=== PATIENT | male | born 1975 | race Caucasian/White ===

== ENCOUNTER 2023-12-16 11:06 | Inpatient (IN) | payer OTHER ==
--- NOTE | 2023-12-16 12:02 | ED ---
Abdominal Pain HPI - General Chief Complaint: Abdominal Pain Stated Complaint: Abd Pain Time Seen by Provider: 12/16/23 11:55 Source: patient, RN notes reviewed Mode of arrival: ambulatory Limitations: no limitations - History of Present Illness Initial Comments: This is a 48 year old male who presents to the emergency department for abdominal pain. For the last 4-5 days he has had epigastric abdominal pain and nausea/vomiting. He currently has constipation, but states that prior to this his stools were green. He does also note drinking alcohol heavily due to anxiety and life stressors. He subsequently checked into [facility] yesterday for alcohol use. Denies any history of withdrawal seizures or DTs. MD Complaint: abdominal pain - Related Data Home Medications Medication Instructions Recorded Confirmed Atorvastatin Calcium 20 mg PO HS 12/16/23 12/16/23 Losartan [Cozaar] 50 mg PO DAILY 12/16/23 12/16/23 Omeprazole [PriLOSEC] 20 mg PO DAILY 12/16/23 12/16/23 Ondansetron Odt [Zofran Odt] 4 mg PO Q8HR PRN 12/16/23 12/16/23 Oxybutynin ER [Ditropan XL] 15 mg PO DAILY 12/16/23 12/16/23 Venlafaxine HCl [Effexor] 37.5 mg PO DAILY 12/16/23 12/16/23 amLODIPine [Norvasc] 2.5 mg PO DAILY 12/16/23 12/16/23 Allergies Allergy/AdvReac Type Severity Reaction Status Date / Time No Known Allergies Allergy Verified 12/16/23 16:03 Review of Systems ROS Statement: Those systems with pertinent positive or pertinent negative responses have been documented in the HPI. ROS Other: All systems not noted in ROS Statement are negative. Past Medical History Past Medical History: Hypertension History of Any Multi-Drug Resistant Organisms: None Reported Past Surgical History: Hernia Repair Additional Past Surgical History / Comment(s): diffuse cysts Past Psychological History: ADD/ADHD, Anxiety Smoking Status: Current every day smoker Past Alcohol Use History: Daily Past Drug Use History: Opiates General Exam Limitations: no limitations General appearance: alert, in no apparent distress Head exam: Present: atraumatic, normocephalic, normal inspection Respiratory exam: Present: normal lung sounds bilaterally. Absent: respiratory distress, wheezes, rales, rhonchi, stridor Cardiovascular Exam: Present: regular rate, normal rhythm, normal heart sounds. Absent: systolic murmur, diastolic murmur, rubs, gallop, clicks GI/Abdominal exam: Present: soft, tenderness (Epigastric and RUQ), normal bowel sounds. Absent: distended Neurological exam: Present: alert, oriented X3, CN II-XII intact Psychiatric exam: Present: normal affect, normal mood Skin exam: Present: warm, dry, intact, normal color. Absent: rash Course Vital Signs 12/16/23 12/16/23 12/16/23 11:16 14:00 15:15 Temperature 98.5 F 98.9 F 98.0 F Pulse Rate 133 H 106 H 105 H Respiratory 18 20 18 Rate Blood Pressure 126/87 123/88 122/86 O2 Sat by Pulse 97 96 97 Oximetry 12/16/23 12/16/23 12/16/23 16:05 18:29 21:35 Temperature 98.9 F 98.9 F Pulse Rate 111 H 116 H 103 H Respiratory 20 18 18 Rate Blood Pressure 119/84 138/94 121/92 O2 Sat by Pulse 95 97 98 Oximetry Medical Decision Making - Medical Decision Making This is a 48 year old male who presents to the emergency department for abdominal pain. Was pt. sent in by a medical professional or institution? @ -[facility] Did you speak to anyone other than the patient for history? @ -No Did you review nursing and triage notes? @ -Yes, and I agree, it is accurate with regards to the patient's symptoms. Were old charts reviewed? @ -No Differential Diagnosis? @ -Differential Abdominal Pain Men: Appendicitis, cholecystitis, diverticulosis, ischemic bowel, pancreatitis, hepatitis, UTI, gastroenteritis, AAA, incarcerated hernia, bowel obstruction, constipation, inflammatory bowel, hepatitis, peptic ulcer disease, splenic infarction, perforated viscus, testicular torsion, this is not meant to be an al l-inclusive list EKG interpreted by me (3pts min.)? @ -EKG interpreted by me demonstrating the following: Sinus tachycardia. Ventricular rate 110 bpm, OH interval 129 ms, QRS duration 99 ms, QTc 390 ms. X-rays interpreted by me (1pt min.)? @ -KUB x-ray obtained. My interpretation identifies no dilation of the large or small bowel loops. CT interpreted by me (1pt min.)? @ -CT scan of the abdomen and pelvis obtained. My interpretation identifies inflammatory changes around the pancreas. U/S interpreted by me (1pt. min.)? @ -Gallbladder ultrasound obtained. My interpretation identifies no evidence of cholelithiasis. What testing was considered but not performed? (CT, X-rays, U/S, labs)? Why? @ -None What meds were considered but not given? Why? @ -None Did you discuss the management of the patient with other professionals? @ -Yes, Dr. Posey, who accepts the patient for admission. Did you reconcile home meds? @ -Yes Was smoking cessation discussed for >3mins.? @ -I discussed smoking cessation for greater than 3 minutes. The risk of smoking were discussed with the patient including but not limited to risks of cancer, stroke, coronary artery disease and COPD. Also discussed with patient were multiple methods of quitting smoking. Lastly we discussed the financial cost of smoking. Was critical care preformed (if so, how long)? @ -No Were there social determinants of health that impacted care today? How? (Homelessness, low income, unemployed, alcoholism, drug addiction, transportation, low edu. Level, literacy, decrease access to med. care, correction, rehab)? @ -Alcoholism, potentially causing the pancreatitis Was there de-escalation of care discussed even if they declined? (Discuss DNR or withdrawal of care, Hospice)? @ -No What co-morbidities impacted this encounter? (DM, HTN, Smoking, COPD, CAD, Cancer, CVA, Hep., AIDS, mental health diagnosis, sleep apnea, morbid obesity)? @ -Smoking, alcoholism, HTN Was patient admitted / discharged? @ -Admitted. Lab work obtained revealing leukocytosis with a white blood cell count of 17.6. Lactic acid elevated at 3.0. Lipase 662 and amylase 165. LFTs mildly elevated. KUB x-ray obtained initially when the patient was in the waiting room. This demonstrated a moderate amount of stool without other acute process. CT scan of the abdomen and pelvis was obtained due to the patient's abnormal lab work as well as the severity of his pain. This demonstrated espinoza nges relating to acute interstitial pancreatitis with moderate inflammation. Edema tracks down the mid and right retroperitoneum. Patient also has a hydropic gallbladder with mild dilation of the bile duct. Gallbladder ultrasound was then obtained demonstrating a somewhat prominent gallbladder wi thout any wall thickening or evidence of cholelithiasis. Given the severity of the patient's pain with notable pancreatic inflammation on CT scan, patient admitted to medicine for acute pancreatitis. Repeat lactic acid was still elevated at 2.5 and the patient remained consistently tachycardic. Patient started on maintenance IV fluids and will be started on a clear liquid diet for the mean time. Undiagnosed new problem with uncertain prognosis? @ -None Drug Therapy requiring intensive monitoring for toxicity (Heparin, Nitro, Insulin, Cardizem)? @ -None Were any procedures done? @ -None Diagnosis/symptom? @ -Acute pancreatitis Acute, or Chronic, or Acute on Chronic? @ -Acute Uncomplicated (without systemic symptoms) or Complicated (systemic symptoms)? @ -Complicated Side effects of treatment? @ -None Exacerbation, Progression, or Severe Exacerbation] @ -Not applicable Poses a threat to life or bodily function? @ -Yes This case was discussed in detail with the attending ED physician, Dr. Cardenas. Presentation, findings, and treatment plan discussed in detail as well. - Lab Data Result diagrams: 12/16/23 12:22 12/16/23 12:22 Lab Results 12/16/23 12/16/23 12/16/23 Range/Units 12:22 12:22 12:22 WBC 17.6 H (3.8-10.6) k/uL RBC 5.49 (4.30-5.90) m/uL Hgb 16.9 (13.0-17.5) gm/dL Hct 48.7 (39.0-53.0) % MCV 88.7 (80.0-100.0) fL MCH 30.7 (25.0-35.0) pg MCHC 34.6 (31.0-37.0) g/dL RDW 12.5 (11.5-15.5) % Plt Count 311 (150-450) k/uL MPV 7.4 Neutrophils % 86 % Lymphocytes % 9 % Monocytes % 4 % Eosinophils % 1 % Basophils % 0 % Neutrophils # 15.0 H (1.3-7.7) k/uL Lymphocytes # 1.5 (1.0-4.8) k/uL Monocytes # 0.8 (0-1.0) k/uL Eosinophils # 0.1 (0-0.7) k/uL Basophils # 0.0 (0-0.2) k/uL Sodium 132 L (137-145) mmol/L Potassium 3.6 (3.5-5.1) mmol/L Chloride 96 L (98-107) mmol/L Carbon Dioxide 24 (22-30) mmol/L Anion Gap 12 mmol/L BUN 21 H (9-20) mg/dL Creatinine 0.70 (0.66-1.25) mg/dL Est GFR (CKD-EPI)AfAm >90 (>60 ml/min/1.73 sqM) Est GFR (CKD-EPI)NonAf >90 (>60 ml/min/1.73 sqM) Glucose 117 H (74-99) mg/dL Lactic Ac Sepsis Rflx Plasma Lactic Acid Porfirio 3.0 H* (0.7-2.0) mmol/L Calcium 9.5 (8.4-10.2) mg/dL Total Bilirubin 1.3 (0.2-1.3) mg/dL AST 71 H (17-59) U/L ALT 66 H (4-49) U/L Alkaline Phosphatase 112 (38-126) U/L C-Reactive Protein (<1.0) mg/dL Total Protein 6.9 (6.3-8.2) g/dL Albumin 4.3 (3.5-5.0) g/dL Amylase 165 H (30-110) U/L Lipase 662 H (23-300) U/L Procalcitonin (0.02-0.09) ng/mL Serum Alcohol mg/dL Influenza Type A (PCR) (Not Detectd) Influenza Type B (PCR) (Not Detectd) RSV (PCR) (Not Detectd) SARS-CoV-2 (PCR) (Not Detectd) 12/16/23 12/16/23 12/16/23 Range/Units 12:22 12:43 14:00 WBC (3.8-10.6) k/uL RBC (4.30-5.90) m/uL Hgb (13.0-17.5) gm/dL Hct (39.0-53.0) % MCV (80.0-100.0) fL MCH (25.0-35.0) pg MCHC (31.0-37.0) g/dL RDW (11.5-15.5) % Plt Count (150-450) k/uL MPV Neutrophils % % Lymphocytes % % Monocytes % % Eosinophils % % Basophils % % Neutrophils # (1.3-7.7) k/uL Lymphocytes # (1.0-4.8) k/uL Monocytes # (0-1.0) k/uL Eosinophils # (0-0.7) k/uL Basophils # (0-0.2) k/uL Sodium (137-145) mmol/L Potassium (3.5-5.1) mmol/L Chloride (98-107) mmol/L Carbon Dioxide (22-30) mmol/L Anion Gap mmol/L BUN (9-20) mg/dL Creatinine (0.66-1.25) mg/dL Est GFR (CKD-EPI)AfAm (>60 ml/min/1.73 sqM) Est GFR (CKD-EPI)NonAf (>60 ml/min/1.73 sqM) Glucose (74-99) mg/dL Lactic Ac Sepsis Rflx Y Plasma Lactic Acid Porfirio (0.7-2.0) mmol/L Calcium (8.4-10.2) mg/dL Total Bilirubin (0.2-1.3) mg/dL AST (17-59) U/L ALT (4-49) U/L Alkaline Phosphatase (38-126) U/L C-Reactive Protein (<1.0) mg/dL Total Protein (6.3-8.2) g/dL Albumin (3.5-5.0) g/dL Amylase (30-110) U/L Lipase (23-300) U/L Procalcitonin (0.02-0.09) ng/mL Serum Alcohol <10 mg/dL Influenza Type A (PCR) Not Detected (Not Detectd) Influenza Type B (PCR) Not Detected (Not Detectd) RSV (PCR) Not Detected (Not Detectd) SARS-CoV-2 (PCR) Not Detected (Not Detectd) 12/16/23 12/16/23 12/16/23 Range/Units 14:00 14:00 15:12 WBC (3.8-10.6) k/uL RBC (4.30-5.90) m/uL Hgb (13.0-17.5) gm/dL Hct (39.0-53.0) % MCV (80.0-100.0) fL MCH (25.0-35.0) pg MCHC (31.0-37.0) g/dL RDW (11.5-15.5) % Plt Count (150-450) k/uL MPV Neutrophils % % Lymphocytes % % Monocytes % % Eosinophils % % Basophils % % Neutrophils # (1.3-7.7) k/uL Lymphocytes # (1.0-4.8) k/uL Monocytes # (0-1.0) k/uL Eosinophils # (0-0.7) k/uL Basophils # (0-0.2) k/uL Sodium (137-145) mmol/L Potassium (3.5-5.1) mmol/L Chloride (98-107) mmol/L Carbon Dioxide (22-30) mmol/L Anion Gap mmol/L BUN (9-20) mg/dL Creatinine (0.66-1.25) mg/dL Est GFR (CKD-EPI)AfAm (>60 ml/min/1.73 sqM) Est GFR (CKD-EPI)NonAf (>60 ml/min/1.73 sqM) Glucose (74-99) mg/dL Lactic Ac Sepsis Rflx Plasma Lactic Acid Porfirio 2.5 H* (0.7-2.0) mmol/L Calcium (8.4-10.2) mg/dL Total Bilirubin (0.2-1.3) mg/dL AST (17-59) U/L ALT (4-49) U/L Alkaline Phosphatase (38-126) U/L C-Reactive Protein 1.7 H (<1.0) mg/dL Total Protein (6.3-8.2) g/dL Albumin (3.5-5.0) g/dL Amylase (30-110) U/L Lipase (23-300) U/L Procalcitonin 0.07 (0.02-0.09) ng/mL Serum Alcohol mg/dL Influenza Type A (PCR) (Not Detectd) Influenza Type B (PCR) (Not Detectd) RSV (PCR) (Not Detectd) SARS-CoV-2 (PCR) (Not Detectd) 12/16/23 Range/Units 15:50 WBC (3.8-10.6) k/uL RBC (4.30-5.90) m/uL Hgb (13.0-17.5) gm/dL Hct (39.0-53.0) % MCV (80.0-100.0) fL MCH (25.0-35.0) pg MCHC (31.0-37.0) g/dL RDW (11.5-15.5) % Plt Count (150-450) k/uL MPV Neutrophils % % Lymphocytes % % Monocytes % % Eosinophils % % Basophils % % Neutrophils # (1.3-7.7) k/uL Lymphocytes # (1.0-4.8) k/uL Monocytes # (0-1.0) k/uL Eosinophils # (0-0.7) k/uL Basophils # (0-0.2) k/uL Sodium (137-145) mmol/L Potassium (3.5-5.1) mmol/L Chloride (98-107) mmol/L Carbon Dioxide (22-30) mmol/L Anion Gap mmol/L BUN (9-20) mg/dL Creatinine (0.66-1.25) mg/dL Est GFR (CKD-EPI)AfAm (>60 ml/min/1.73 sqM) Est GFR (CKD-EPI)NonAf (>60 ml/min/1.73 sqM) Glucose (74-99) mg/dL Lactic Ac Sepsis Rflx Y Plasma Lactic Acid Porfirio (0.7-2.0) mmol/L Calcium (8.4-10.2) mg/dL Total Bilirubin (0.2-1.3) mg/dL AST (17-59) U/L ALT (4-49) U/L Alkaline Phosphatase (38-126) U/L C-Reactive Protein (<1.0) mg/dL Total Protein (6.3-8.2) g/dL Albumin (3.5-5.0) g/dL Amylase (30-110) U/L Lipase (23-300) U/L Procalcitonin (0.02-0.09) ng/mL Serum Alcohol mg/dL Influenza Type A (PCR) (Not Detectd) Influenza Type B (PCR) (Not Detectd) RSV (PCR) (Not Detectd) SARS-CoV-2 (PCR) (Not Detectd) - Radiology Data Radiology results: report reviewed, image reviewed Disposition Clinical Impression: Acute pancreatitis, Nicotine dependence Disposition: ADMITTED IP TO THIS [facility] Time of Disposition: 15:43
[2023-12-16 12:32] LABS: Basophils % (A) 0 %; Eosinophils # (A) 0.1 k/uL (0-0.7); Eosinophils % (A) 1 %; HCT 48.7 % (39.0-53.0); HGB 16.9 gm/dL (13.0-17.5); Lymphocytes # (A) 1.5 k/uL (1.0-4.8); Lymphocytes % (A) 9 %; MCH 30.7 pg (25.0-35.0); MCHC 34.6 g/dL (31.0-37.0); MCV 88.7 fL (80.0-100.0); Mean Platelet Volume 7.4; Monocytes # (A) 0.8 k/uL (0-1.0); Monocytes % (A) 4 %; Neutrophils % (A) 86 %; Platelet Count 311 k/uL (150-450); RBC 5.49 m/uL (4.30-5.90); RDW 12.5 % (11.5-15.5); WBC 17.6 k/uL (3.8-10.6)
[2023-12-16 12:40] LABS: ALT 66 U/L (4-49); AST 71 U/L (17-59); African American GFR (CKD) >90 (>60 ml/min/1.73 sqM); Albumin 4.3 g/dL (3.5-5.0); Alkaline Phosphatase 112 U/L (38-126); Amylase 165 U/L (30-110); Anion Gap 12 mmol/L; Blood Urea Nitrogen 21 mg/dL (9-20); Calcium 9.5 mg/dL (8.4-10.2); Carbon Dioxide 24 mmol/L (22-30); Chloride 96 mmol/L (98-107); Glucose 117 mg/dL (74-99); Lipase 662 U/L (23-300); Non-African American GFR(CKD) >90 (>60 ml/min/1.73 sqM); Potassium 3.6 mmol/L (3.5-5.1); Sodium 132 mmol/L (137-145); Total Bilirubin 1.3 mg/dL (0.2-1.3); Total Protein 6.9 g/dL (6.3-8.2)
--- NOTE | 2023-12-16 12:43 | XR ---
EXAMINATION TYPE: XR KUB DATE OF EXAM: 12/16/2023 12:39 PM CLINICAL INDICATION:Male, 48 years old with history of Abdominal pain, constipation; [facility] COMPARISON: None. TECHNIQUE: One radiographic view of the abdomen was obtained. FINDINGS: The bowel gas pattern is nonspecific without dilated loops of small or large bowel. There i s no evidence for organomegaly or pneumoperitoneum. The osseous structures are intact. No abnormal calcifications are present. Fecal material and gas are demonstrated throughout the colon and rectum. Bilateral degeneration changes of the hips. IMPRESSION: Moderate amount of stool otherwise, nonspecific bowel gas pattern without radiographic evidence for a cute process.
[2023-12-16] MEDS: ONDANSETRON 4 MG/2 ML VIAL IVP STA (13:33)
[2023-12-16] MEDS: SODIUM CHLORIDE 0.9% 1,000 ML IV STA ×2 (13:33→16:00)
[2023-12-16] MEDS: KETOROLAC 15 MG/ML 1 ML VIAL IVP STA (13:33)
--- NOTE | 2023-12-16 13:51 | CT ---
EXAMINATION TYPE: CT abdomen pelvis w con DATE OF EXAM: 12/16/2023 COMPARISON: Radiograph same day HISTORY: 48-year-old male Abdominal pain, acute, nonlocalized TECHNIQUE: Contiguous axial scanning of the abdomen and pelvis following administration of 100 ml Iso demarcus r300 IV contrast. Delayed images through the kidneys and coronal/sagittal reconstructions perfor med. CT DLP: 1486.2 mGycm Automated exposure control for dose reduction was used. FINDINGS: Heart is normal size without pericardial effusion. Strandy atelectasis in the right lower l franco. No pleural effusion. Liver is enlarged at 20.4 cm with diminished attenuation compatible with fatty infiltration. Portal v enous system is patent. Hydropic gallbladder measuring 5.3 cm wide. In addition, the bile duct is mildly dilated at 8 mm. Adrenal glands, right kidney, and spleen within normal limits. Tiny 1 cm cortical cyst left kidney. There is edematous enlargement of the head of the pancreas with peripancreatic fat stranding diffusel y and mild tracking edema and inflammation in the mid and right side of the retroperitoneum. Trace fl uid tracking along the right paracolic gutter as well. No abnormal peripancreatic fluid collection is seen. Mild circumferential thickening of the second portion of the duodenum likely relates to reactive infl ammation. No dilated small bowel or free air is seen. Normal appendix. Scattered minimal stool. No pericolic inflammatory change. Previous right lower quadrant and right inguinal mesh repair. Bladder partially distended. No abnormal fluid collection in the pelvis or pelvic lymphadenopathy. Bones: Moderate to advanced degenerative disc disease L4-L5 and L5-S1. IMPRESSION: 1. CHANGES RELATING TO ACUTE INTERSTITIAL PANCREATITIS WITH MODERATE INFLAMMATION. EDEMA TRACKS DOWN THE MID AND RIGHT RETROPERITONEUM. NO PERIPANCREATIC FLUID COLLECTION IDENTIFIED. 2. HYDROPIC GALLBLADDER. IN ADDITION, THERE IS MILD DILATATION OF THE BILE DUCT UP TO 8 MM. CORRELATE WITH ALKALINE PHOSPHATASE AND BILIRUBIN LEVELS TO EXCLUDE THE POSSIBILITY OF EARLY BILIARY OBSTRUCTI ON A POTENTIAL ETIOLOGY FOR THE PANCREATITIS. 3. HEPATOMEGALY AT 20.4 CM WITH MODERATE TO SEVERE HEPATIC STEATOSIS. APPROPRIATE CLINICAL MANAGEMENT IS ADVISED.
--- NOTE | 2023-12-16 15:01 | US ---
EXAMINATION TYPE: US gallbladder DATE OF EXAM: 12/16/2023 COMPARISON: CLINICAL INDICATION: Male, 48 years old with history of RUQ pain, abnormal CT; Patient states he is u nable to eat. Abnormal CT from today. TECHNIQUE: Multiple sonographic images of the right upper quadrant are obtained. FINDINGS: EXAM MEASUREMENTS: Liver Length: 18.9 cm Gallbladder Wall: 0.1 cm CBD: 0.6 cm Right Kidney: 11.1 x 6.5 x 7.0 cm Pancreas: Body and tail not well seen Liver: Increased attenuation, decreased visualization of vessels suggestive of fatty infiltrate. En larged in size. Gallbladder: Enlarged in size = 10.5 cm. No wall thickening or stones seen Evidence for sonographic Ellis's sign: neg CBD: wnl Right Kidney: No hydronephrosis or masses seen IMPRESSION: 1. Hepatomegaly. 2. Somewhat prominent gallbladder. No additional changes to suggest acute cholecystitis evident.
[2023-12-16] MEDS ORDERED: KETOROLAC 15 MG/ML 1 ML VIAL IVP PRN (15:50)
[2023-12-16] MEDS ORDERED: NALOXONE 0.4 MG/ML 1 ML VIAL IV PRN (15:50)
[2023-12-16] MEDS ORDERED: ACETAMINOPHEN TAB 325 MG TAB PO PRN (15:50)
[2023-12-16] MEDS: SODIUM CHLORIDE 0.9% 1,000 ML IV SCH (16:00)
[2023-12-16] MEDS: HYDROmorphone 1 MG/ML 1 ML SYRINGE IVP PRN (18:33)
[2023-12-16] MEDS ORDERED: ONDANSETRON ODT 4 MG TAB PO PRN (18:36)
[2023-12-16] MEDS: ATORVASTATIN 20 MG TAB PO SCH (20:25)
[2023-12-16] MEDS: ONDANSETRON 4 MG/2 ML VIAL IVP PRN (20:26)
[2023-12-17 08:41] LABS: ALT 53 U/L (10-49); AST 58 U/L (14-35); Albumin 3.5 g/dL (3.8-4.9); Albumin/Globulin Ratio 1.59 Ratio (1.60-3.17); Alkaline Phosphatase 121 U/L (41-126); BUN/Creat Ratio 19.86 Ratio (12.00-20.00); Blood Urea Nitrogen 13.9 mg/dL (9.0-27.0); Calcium 8.4 mg/dL (8.7-10.3); Carbon Dioxide 24.4 mmol/L (21.6-31.8); Chloride 99 mmol/L (96-109); Globulin 2.2 g/dL (1.6-3.3); Glucose 95 mg/dL (70-110); Lipase 156 U/L (14-60); Potassium 3.4 mmol/L (3.5-5.5); Sodium 135 mmol/L (135-145); Total Bilirubin 0.9 mg/dL (0.3-1.2); Total Protein 5.7 g/dL (6.2-8.2)
[2023-12-17] MEDS ORDERED: NON FORMULARY DRUG (Omeprazole 20 MG Capsule.Dr) PO SCH (09:00)
[2023-12-17] MEDS: PANTOPRAZOLE 40 MG/10 ML VIAL IV SCH (09:03)
[2023-12-17] MEDS: LOSARTAN 50 MG TAB PO SCH (09:03)
[2023-12-17] MEDS: OXYBUTYNIN 15 MG TAB.ER.24 PO SCH (09:03)
[2023-12-17] MEDS: amLODIPine 2.5 MG TAB PO SCH (09:03)
[2023-12-17] MEDS: VENLAFAXINE HCL 37.5 MG TAB PO SCH (09:03)
[2023-12-17] MEDS: POTASSIUM CHLORIDE ER 20 MEQ TAB.ER PO STA (10:51)
[2023-12-17 11:39] VITALS: BMI 31.1
--- NOTE | 2023-12-17 22:18 | P.HPIM ---
History of Present Illness H&P Date: 12/17/23 Chief Complaint: Abdominal pain Patient is a 48-year-old male with a known history of hypertension, ADD/ADHD, anxiety, daily alcohol use and currently everyday smoker presents to ER with complaints of abdominal pain mainly in the epigastric and left upper quadrant. Patient has been having symptoms for the past 4 to 5 days associate with nausea and vomiting. Patient also has constipation recently. Patient was states that she has been anxious for t he past 2 months and has been drinking heavily due to that. He was started on Effexor by his primary care physician which patient states is not helping her. Otherwise denies any complaints of diarrhea. No chest pain or shortness of breath. No cough or sputum production. No fever no chills. Denies any recent illnesses. KUB x-ray showed moderate amount of stool otherwise nonspecific bowel gas pattern without radiographic evidence for acute process. CT of the abdomen pelvis showed changes relating to acute interstitial pancreatitis with moderate inflammation. Edema tracks down the mid and right retroperitoneum. No peripancreatic fluid collection identified. Hydropic gallbladder. In addition there is mild dilatation of the bile duct up to 8 mm. Correlate with alkaline phosphatase and bilirubin levels to exclude the possibility of early coronary obstruction as a potential etiology for the pancreatitis. Hepatomegaly at 20.4 cm with moderate to severe hepatic steatosis. Laboratory data showed sodium 132 potassium 3.6 chloride 96 BUN 21 creatinine 0.7 lactic acid 3.0 on admission AST 71 ALT 66 and alk phos 112, bilirubin level 1.3 Amylase 165 and lipase 662 and serum alcohol level is less than 10. Review of Systems Constitutional: Patient denies any fever or chills . No generalized weakness or weight loss. Abdomen: Patient did have nausea vomiting and epiastric and left upper quadrant abdominal pain. No diarrhea Cardiovascular: Patient denies any chest pain or short of breath no palpitations. Respiratory: patient denied any cough is from production. No shortness of breath Neurologic: Patient denied any numbness or tingling headache. Musculoskeletal: Patient denies any complaints of joint swelling or deformity. Skin: Negative Psychiatric: Anxiety Endocrine: No heat or cold intolerance. No recent weight gain. Genitourinary: No dysuria or hematuria. All other 14 point ROS negative except the above Past Medical History Past Medical History: Hypertension Additional Past Medical History / Comment(s): TIA 10 years ago, History of Any Multi-Drug Resistant Organisms: None Reported Past Surgical History: Hernia Repair Additional Past Surgical History / Comment(s): diffuse cysts Past Anesthesia/Blood Transfusion Reactions: No Reported Reaction Past Psychological History: ADD/ADHD, Anxiety Smoking Status: Current every day smoker Past Alcohol Use History: Daily Past Drug Use History: Opiates Medications and Allergies Home Medications Medication Instructions Recorded Confirmed Type Atorvastatin Calcium 20 mg PO HS 12/16/23 12/16/23 History Losartan [Cozaar] 50 mg PO DAILY 12/16/23 12/16/23 History Omeprazole [PriLOSEC] 20 mg PO DAILY 12/16/23 12/16/23 History Ondansetron Odt [Zofran Odt] 4 mg PO Q8HR PRN 12/16/23 12/16/23 History Oxybutynin ER [Ditropan XL] 15 mg PO DAILY 12/16/23 12/16/23 History Venlafaxine HCl [Effexor] 37.5 mg PO DAILY 12/16/23 12/16/23 History amLODIPine [Norvasc] 2.5 mg PO DAILY 12/16/23 12/16/23 History Allergies Allergy/AdvReac Type Severity Reaction Status Date / Time No Known Allergies Allergy Verified 12/16/23 16:03 Physical Exam Vitals: Vital Signs Temp Pulse Pulse Resp BP BP Pulse Ox 12/17/23 07:00 98.4 F 88 16 135/80 97 12/17/23 02:13 98.4 F 88 18 116/65 97 12/16/23 22:23 102 H 12/16/23 22:03 99.4 F 102 H 18 131/87 99 12/16/23 21:35 103 H 18 121/92 98 12/16/23 18:29 98.9 F 116 H 18 138/94 97 12/16/23 16:05 98.9 F 111 H 20 119/84 95 12/16/23 15:15 98.0 F 105 H 18 122/86 97 12/16/23 14:00 98.9 F 106 H 20 123/88 96 12/16/23 11:16 98.5 F 133 H 18 126/87 97 Intake and Output 12/16/23 12/17/23 12/17/23 22:59 06:59 14:59 Other: Voiding Method Toilet # Voids 2 Weight 104.326 kg PHYSICAL EXAMINATION: Patient is lying in the bed comfortably, no acute distress, awake alert and oriented.. HEENT: Normocephalic. Neck is supple. Pupils reactive. Nostrils clear. Oral cavity is moist. Neck reveals no JVD, carotid bruits, or thyromegaly. CHEST EXAMINATION: Trachea is central. Symmetrical expansion. Lung nesbitt clear to auscultation and percussion. CARDIAC: Normal S1, S2 with no gallops. No murmurs ABDOMEN: Soft. Bowel sounds normal. Mild epigastric tenderness. No guarding or rigidity. No organomegaly. No abdominal bruits. Extremities: reveal no edema. No clubbing or cyanosis Neurologically awake, alert, oriented x3 with well-coordinated movements. No focal deficits noted Skin: No rash or skin lesions. Psychiatric: Coperative. Nonsuicidal, anxious. Musculoskeletal: No joint swelling or deformity. Normal range of motion. Results CBC & Chem 7: 12/16/23 12:22 12/17/23 05:47 Labs: Abnormal Lab Results - Last 24 Hours (Table) 12/16/23 12/16/23 12/16/23 Range/Units 12:22 12:22 12:22 WBC 17.6 H (3.8-10.6) k/uL Neutrophils # 15.0 H (1.3-7.7) k/uL Sodium 132 L (137-145) mmol/L Potassium (3.5-5.5) mmol/L Chloride 96 L (98-107) mmol/L BUN 21 H (9-20) mg/dL Glucose 117 H (74-99) mg/dL Plasma Lactic Acid Porfirio 3.0 H* (0.7-2.0) mmol/L Calcium (8.7-10.3) mg/dL AST 71 H (17-59) U/L ALT 66 H (4-49) U/L C-Reactive Protein (<1.0) mg/dL Total Protein (6.2-8.2) g/dL Albumin (3.8-4.9) g/dL Albumin/Globulin Ratio (1.60-3.17) Ratio Amylase 165 H (30-110) U/L Lipase 662 H (23-300) U/L 12/16/23 12/16/23 12/16/23 Range/Units 14:00 15:12 18:30 WBC (3.8-10.6) k/uL Neutrophils # (1.3-7.7) k/uL Sodium (137-145) mmol/L Potassium (3.5-5.5) mmol/L Chloride (98-107) mmol/L BUN (9-20) mg/dL Glucose (74-99) mg/dL Plasma Lactic Acid Porfirio 2.5 H* 2.1 H* (0.7-2.0) mmol/L Calcium (8.7-10.3) mg/dL AST (17-59) U/L ALT (4-49) U/L C-Reactive Protein 1.7 H (<1.0) mg/dL Total Protein (6.2-8.2) g/dL Albumin (3.8-4.9) g/dL Albumin/Globulin Ratio (1.60-3.17) Ratio Amylase (30-110) U/L Lipase (23-300) U/L 12/17/23 Range/Units 05:47 WBC (3.8-10.6) k/uL Neutrophils # (1.3-7.7) k/uL Sodium (137-145) mmol/L Potassium 3.4 L (3.5-5.5) mmol/L Chloride (98-107) mmol/L BUN (9-20) mg/dL Glucose (74-99) mg/dL Plasma Lactic Acid Porfirio (0.7-2.0) mmol/L Calcium 8.4 L (8.7-10.3) mg/dL AST 58 H (17-59) U/L ALT 53 H (4-49) U/L C-Reactive Protein (<1.0) mg/dL Total Protein 5.7 L (6.2-8.2) g/dL Albumin 3.5 L (3.8-4.9) g/dL Albumin/Globulin Ratio 1.59 L (1.60-3.17) Ratio Amylase (30-110) U/L Lipase 156 H (23-300) U/L Thrombosis Risk Factor Assmnt - DVT/VTE Prophylaxis DVT/VTE Prophylaxis: Pharmacologic Prophylaxis ordered - Choose All That Apply Any of the Below Risk Factors Present?: Yes Each Factor Represents 1 point: Age 41-60 years, Minor surgery planned Other Risk Factors: No Other congenital or acquired thrombophilia - If yes, enter type in comment: No Thrombosis Risk Factor Assessment Total Risk Factor Score: 2 Thrombosis Risk Factor Assessment Level: Low Risk Assessment and Plan Assessment: Acute pancreatitis likely EtOH related Lactic acidosis on admission Mild transaminitis Leukocytosis with WBC 17.7 on admission ADD/ADHD Anxiety Currently everyday smoker and daily alcohol use DVT prophylax with heparin subcu GI prophylaxis with PPI Plan: Patient will be continued on IV hydration with normal saline and continue with pain management with Dilaudid. Nothing by mouth until pain gets better. Ultrasound gallbladder was ordered which showed hepatomegaly and no additional changes to suggest acute cholecystitis noted. Bilirubin level and alk phos is within normal limits. Currently denies any right upper quadrant abdominal pain. Continue to follow closely. Alcohol abstinence has been counseled extensively. Patient will be started on Cymbalta and Effexor has been discontinued. Time with Patient: Greater than 30
[2023-12-17] MEDS: DULoxetine HCL 20 MG CAPSULE.DR PO SCH (23:45)
[2023-12-17] MEDS: SENNOSIDES 8.6 MG TAB PO PRN (23:45)
[2023-12-17] MEDS: HEPARIN SODIUM,PORCINE 5,000 UNIT/ML 1 ML VIAL SQ SCH (23:55)
[2023-12-18 09:31] LABS: Basophils # (A) 0.03 X 10*3/uL (0.00-0.10); Basophils % (A) 0.3 %; Eosinophils % (A) 0.9 %; HCT 36.9 % (39.6-50.0); HGB 12.8 g/dL (13.0-17.0); Lymphocytes # (A) 1.73 X 10*3/uL (0.90-5.00); Lymphocytes % (A) 16.2 %; MCH 30.9 pg (27.0-32.0); MCHC 34.7 g/dL (32.0-37.0); MCV 89.1 FL (80.0-97.0); Mean Platelet Volume 9.6 FL (9.5-12.2); Monocytes # (A) 0.56 X 10*3/uL (0.20-1.00); Monocytes % (A) 5.3 %; NRBC Per 100 WBC 0 X 10*3/uL (0.00-0.01); Neutrophils # (A) 8.21 X 10*3/uL (1.80-7.70); Platelet Count 206 X 10*3/uL (140-440); RBC 4.14 X 10*6/uL (4.40-5.60); RDW 12.1 % (11.5-14.5); WBC 10.66 X 10*3/uL (4.50-10.00)
[2023-12-18 09:39] LABS: ALT 41 U/L (10-49); AST 33 U/L (14-35); Albumin 3.3 g/dL (3.8-4.9); Albumin/Globulin Ratio 1.65 Ratio (1.60-3.17); Alkaline Phosphatase 117 U/L (41-126); Calcium 8.3 mg/dL (8.7-10.3); Carbon Dioxide 26.1 mmol/L (21.6-31.8); Chloride 100 mmol/L (96-109); Glucose 99 mg/dL (70-110); Potassium 3.4 mmol/L (3.5-5.5); Sodium 137 mmol/L (135-145); Total Bilirubin 0.6 mg/dL (0.3-1.2); Total Protein 5.3 g/dL (6.2-8.2)
[2023-12-18] MEDS ORDERED: Potassium Replacement Protocol 1 EACH MISC MISCELLANE PRN (14:04)
[2023-12-18] MEDS: POTASSIUM CHLORIDE ER 20 MEQ TAB.ER PO SCH (14:52)
[2023-12-18] MEDS: HYDROcodone/APAP 5-325MG 1 EACH TAB PO PRN (14:55)
--- NOTE | 2023-12-18 15:34 | P.PN ---
Subjective Progress Note Date: 12/18/23 Patient is a 48-year-old male with a known history of hypertension, ADD/ADHD, anxiety, daily alcohol use and currently everyday smoker presents to ER with complaints of abdominal pain mainly in the epigastric and left upper quadrant. Patient has been having symptoms for the past 4 to 5 days associate with nausea and vomiting. Patient also has constipation recently. Patient was states that she has been anxious for t he past 2 months and has been drinking heavily due to that. He was started on Effexor by his primary care physician which patient states is not helping her. Otherwise denies any complaints of diarrhea. No chest pain or shortness of breath. No cough or sputum production. No fever no chills. Denies any recent illnesses. KUB x-ray showed moderate amount of stool otherwise nonspecific bowel gas pattern without radiographic evidence for acute process. CT of the abdomen pelvis showed changes relating to acute interstitial pancreatitis with moderate inflammation. Edema tracks down the mid and right retroperitoneum. No peripancreatic fluid collection identified. Hydropic gallbladder. In addition there is mild dilatation of the bile duct up to 8 mm. Correlate with alkaline phosphatase and bilirubin levels to exclude the possibility of early coronary obstruction as a potential etiology for the pancreatitis. Hepatomegaly at 20.4 cm with moderate to severe hepatic steatosis. Laboratory data showed sodium 132 potassium 3.6 chloride 96 BUN 21 creatinine 0.7 lactic acid 3.0 on admission AST 71 ALT 66 and alk phos 112, bilirubin level 1.3 Amylase 165 and lipase 662 and serum alcohol level is less than 10. 12/18/2023 Patient is seen and evaluated in follow-up today is continued on IV hydration with normal saline and liver functions are within normal limits and lactic acid has resolved. Potassium slightly low at 3.4 and will replace per protocol recommend follow-up labs. Per nursing staff patient continues to request IV pain medications although will transition and also discussed with the patient about avoiding IV narcotics and continuing with other pain control measures as patient will not be discharged back to [place] on IV Dilaudid. Patient plans on returning to [place] for continued alcohol rehab. Patient is currently afebrile reports attempted to tolerate some diet although feels abdominal pain with this as well. Will transition to low fiber and monitor for tolerance and encourage small frequent meals. Patient also instructed that if abdominal pain increases then to cut back on diet and continue with just ice chips and small sips of water. Patient has been also been instructed to increase activity as tolerated. Possible discharge planning to [place] in 24 hours. Review of systems: Constitutional: No reports of fatigue, fever, or chills Cardiovascular: No reports of chest pain or palpitations Respiratory: No reports of shortness of breath or cough GI: reports of continued nausea, no vomiting, or diarrhea, reports continued abdominal pain : No reports of dysuria or retention Neurovascular: No reports of weakness or numbness All medications have been reviewed PHYSICAL EXAMINATION: Patient is lying in the bed comfortably, no acute distress, awake alert and oriented.. Obese HEENT: Normocephalic. Neck is supple. Pupils reactive. Nostrils clear. Oral cavity is moist. Neck reveals no JVD, carotid bruits, or thyromegaly. CHEST EXAMINATION: Trachea is central. Symmetrical expansion. Lung nesbitt clear to auscultation and percussion. CARDIAC: Normal S1, S2 with no gallops. No murmurs ABDOMEN: Soft. Bowel sounds normal. Mild epigastric tenderness. No guarding or rigidity. No organomegaly. No abdominal bruits. Extremities: reveal no edema. No clubbing or cyanosis Neurologically awake, alert, oriented x3 with well-coordinated movements. No focal deficits noted Skin: No rash or skin lesions. Psychiatric: Cooperative. Non-suicidal, a little less anxious. Musculoskeletal: No joint swelling or deformity. Normal range of motion. Assessment: Acute pancreatitis likely EtOH related Lactic acidosis on admission, resolved Mild transaminitis secondary to alcohol intake, improved Leukocytosis with WBC 17.7 on admission, trending down ADD/ADHD history Anxiety history Currently everyday smoker and daily alcohol use Obesity with a BMI of 31.2 DVT prophylax with heparin subcu GI prophylaxis with PPI Full code Plan: Patient will be continued on IV hydration with normal saline and continue with p ain management with Dilaudid. Patient was started on clear liquid and tolerating although reports continued abdominal pain. Per nursing staff patient has been requesting IV Dilaudid. Will adjust medications and also add oral pain medications. Advance diet to low fiber and instructed the patient if having continued pain then will go back to n.p.o. with just ice chips. Patient verbalized understanding Ultrasound gallbladder was ordered which showed hepatomegaly and no additional changes to suggest acute cholecystitis noted. Bilirubin level and alk phos is within normal limits. Currently denies any right upper quadrant abdominal pain. Continue to follow closely. Alcohol abstinence has been counseled extensively. Patient reports plan on returning to [place] for continued alcohol rehab Patient will be continued on Cymbalta and Effexor has been discontinued. Follow-up with repeat labs in the a.m. Encouraged increase activity as tolerated Possible discharge to [place] in the next 24 hours The impression and plan of care has been dictated by Thuy Padgett, Nurse Practitioner as directed. Dr. Kalpesh MD I have performed a history and examination and MDM of this patient, discussed the same with the dictator, and agree with the dictator's assessment and plan as written ,documented as a scribe. Based on total visit time, I have performed more than 50% of the visit. Objective - Vital Signs Vital signs: Vital Signs Temp 98.1 F 12/18/23 07:00 Pulse 72 12/18/23 07:00 Resp 18 12/18/23 07:00 BP 130/88 12/18/23 07:00 Pulse Ox 96 12/18/23 07:00 FiO2 Intake & Output 12/17/23 12/18/23 12/18/23 18:59 06:59 18:59 Intake Total 1160 Balance 1160 Weight 104.326 kg Intake: Intake, IV Titration 800 Amount Sodium Chloride 0.9% 1, 800 000 ml @ 100 mls/hr IV . Q10H [facility] Rx#:[id number] Oral 360 Other: # Voids 3 - Labs CBC & Chem 7: 12/18/23 05:36 12/18/23 05:36 Labs: Abnormal Lab Results - Last 24 Hours (Table) 12/18/23 Range/Units 05:36 WBC 10.66 H (4.50-10.00) X 10*3/uL RBC 4.14 L (4.40-5.60) X 10*6/uL Hgb 12.8 L (13.0-17.0) g/dL Hct 36.9 L (39.6-50.0) % Neutrophils # 8.21 H (1.80-7.70) X 10*3/uL
[2023-12-18] MEDS: MELATONIN 3 MG TABLET PO SCH (23:54)
[2023-12-19 10:08] LABS: Basophils % (A) 0 %; Eosinophils # (A) 0.1 k/uL (0-0.7); Eosinophils % (A) 1 %; HCT 35.9 % (39.0-53.0); Lymphocytes # (A) 1.3 k/uL (1.0-4.8); Lymphocytes % (A) 15 %; MCH 32.6 pg (25.0-35.0); MCHC 34.7 g/dL (31.0-37.0); Mean Platelet Volume 7.1; Monocytes # (A) 0.2 k/uL (0-1.0); Monocytes % (A) 3 %; Neutrophils # (A) 6.6 k/uL (1.3-7.7); Neutrophils % (A) 80 %; Platelet Count 205 k/uL (150-450); RBC 3.83 m/uL (4.30-5.90); RDW 12.3 % (11.5-15.5); WBC 8.4 k/uL (3.8-10.6)
[2023-12-19 10:13] LABS: HGB 12.5 gm/dL (13.0-17.5); MCV 93.8 fL (80.0-100.0)
[2023-12-19 10:18] LABS: ALT 36 U/L (4-49); AST 36 U/L (17-59); African American GFR (CKD) >90 (>60 ml/min/1.73 sqM); Albumin 3.1 g/dL (3.5-5.0); Albumin/Globulin Ratio 1.3; Alkaline Phosphatase 108 U/L (38-126); Anion Gap 4 mmol/L; Blood Urea Nitrogen 7 mg/dL (9-20); Calcium 8.3 mg/dL (8.4-10.2); Carbon Dioxide 27 mmol/L (22-30); Chloride 106 mmol/L (98-107); Globulin 2.3 g/dL; Glucose 156 mg/dL (74-99); Lipase 1878 U/L (23-300); Magnesium 1.6 mg/dL (1.6-2.3); Non-African American GFR(CKD) >90 (>60 ml/min/1.73 sqM); Potassium 3.1 mmol/L (3.5-5.1); Sodium 137 mmol/L (137-145); Total Bilirubin 0.5 mg/dL (0.2-1.3); Total Protein 5.4 g/dL (6.3-8.2)
[2023-12-19] MEDS: POTASSIUM CHLORIDE ER 20 MEQ TAB.ER PO SCH (13:26)
[2023-12-19] MEDS: MAGNESIUM SULFATE-D5W PMX 1 GM in DEXTROSE/WATER 1 100ML.BAG IVPB SCH (13:54)
[2023-12-19] MEDS: HYDROmorphone 0.5 MG/0.5 ML SYRINGE IVP PRN (15:55)
[2023-12-20 07:35] LABS: Basophils % (A) 0 %; Eosinophils # (A) 0.2 k/uL (0-0.7); Eosinophils % (A) 2 %; HGB 12.4 gm/dL (13.0-17.5); Lymphocytes % (A) 21 %; MCH 31.4 pg (25.0-35.0); MCHC 33.4 g/dL (31.0-37.0); Mean Platelet Volume 7.1; Monocytes # (A) 0.4 k/uL (0-1.0); Monocytes % (A) 4 %; Neutrophils # (A) 6.9 k/uL (1.3-7.7); Neutrophils % (A) 71 %; Platelet Count 230 k/uL (150-450); RBC 3.94 m/uL (4.30-5.90); RDW 12.5 % (11.5-15.5); WBC 9.7 k/uL (3.8-10.6)
[2023-12-20 07:48] LABS: ALT 40 U/L (4-49); AST 39 U/L (17-59); African American GFR (CKD) >90 (>60 ml/min/1.73 sqM); Albumin 3.1 g/dL (3.5-5.0); Albumin/Globulin Ratio 1.3; Alkaline Phosphatase 116 U/L (38-126); Anion Gap 5 mmol/L; Blood Urea Nitrogen 4 mg/dL (9-20); Calcium 8.4 mg/dL (8.4-10.2); Carbon Dioxide 28 mmol/L (22-30); Chloride 104 mmol/L (98-107); Globulin 2.4 g/dL; Glucose 95 mg/dL (74-99); Lipase 1605 U/L (23-300); Non-African American GFR(CKD) >90 (>60 ml/min/1.73 sqM); Potassium 3.5 mmol/L (3.5-5.1); Sodium 137 mmol/L (137-145); Total Bilirubin 0.5 mg/dL (0.2-1.3); Total Protein 5.5 g/dL (6.3-8.2)
[2023-12-20] MEDS: POTASSIUM CHLORIDE ER 20 MEQ TAB.ER PO SCH (08:56)
--- NOTE | 2023-12-21 01:40 | P.PN ---
Subjective Progress Note Date: 12/19/23 Patient is a 48-year-old male with a known history of hypertension, ADD/ADHD, anxiety, daily alcohol use and currently everyday smoker presents to ER with complaints of abdominal pain mainly in the epigastric and left upper quadrant. Patient has been having symptoms for the past 4 to 5 days associate with nausea and vomiting. Patient also has constipation recently. Patient was states that she has been anxious for t he past 2 months and has been drinking heavily due to that. He was started on Effexor by his primary care physician which patient states is not helping her. Otherwise denies any complaints of diarrhea. No chest pain or shortness of breath. No cough or sputum production. No fever no chills. Denies any recent illnesses. KUB x-ray showed moderate amount of stool otherwise nonspecific bowel gas pattern without radiographic evidence for acute process. CT of the abdomen pelvis showed changes relating to acute interstitial pancreatitis with moderate inflammation. Edema tracks down the mid and right retroperitoneum. No peripancreatic fluid collection identified. Hydropic gallbladder. In addition there is mild dilatation of the bile duct up to 8 mm. Correlate with alkaline phosphatase and bilirubin levels to exclude the possibility of early coronary obstruction as a potential etiology for the pancreatitis. Hepatomegaly at 20.4 cm with moderate to severe hepatic steatosis. Laboratory data showed sodium 132 potassium 3.6 chloride 96 BUN 21 creatinine 0.7 lactic acid 3.0 on admission AST 71 ALT 66 and alk phos 112, bilirubin level 1.3 Amylase 165 and lipase 662 and serum alcohol level is less than 10. 12/18/2023 Patient is seen and evaluated in follow-up today is continued on IV hydration with normal saline and liver functions are within normal limits and lactic acid has resolved. Potassium slightly low at 3.4 and will replace per protocol recommend follow-up labs. Per nursing staff patient continues to request IV pain medications although will transition and also discussed with the patient about avoiding IV narcotics and continuing with other pain control measures as patient will not be discharged back to [place] on IV Dilaudid. Patient plans on returning to [place] for continued alcohol rehab. Patient is currently afebrile reports attempted to tolerate some diet although feels abdominal pain with this as well. Will transition to low fiber and monitor for tolerance and encourage small frequent meals. Patient also instructed that if abdominal pain increases then to cut back on diet and continue with just ice chips and small sips of water. Patient has been also been instructed to increase activity as tolerated. Possible discharge planning to [place] in 24 hours. 3 24 Patient is lying in the bed. Awake alert and oriented x 3. Complains of worsening abdominal pain today. Requesting IV pain medications. Patient has been afebrile. No nausea vomiting abdominal pain or diarrhea. No cough or sputum production. No headache or dizziness or lightheadedness. Laboratory data showed WBC 8.4 hemoglobin 12.5 and platelets 205 Sodium 137 potassium 3.1 chloride 106 bicarbonate 27 BUN 7 creatinine 0.57 and blood sugar 8.3 albumin 3.1 Lipase level went up to 1878 today. Review of systems: Constitutional: No reports of fatigue, fever, or chills Cardiovascular: No reports of chest pain or palpitations Respiratory: No reports of shortness of breath or cough GI: reports of continued nausea, no vomiting, or diarrhea, reports continued abdominal pain : No reports of dysuria or retention Neurovascular: No reports of weakness or numbness All medications have been reviewed PHYSICAL EXAMINATION: Patient is lying in the bed comfortably, no acute distress, awake alert and oriented.. Obese HEENT: Normocephalic. Neck is supple. Pupils reactive. Nostrils clear. Oral cavity is moist. Neck reveals no JVD, carotid bruits, or thyromegaly. CHEST EXAMINATION: Trachea is central. Symmetrical expansion. Lung nesbitt clear to auscultation and percussion. CARDIAC: Normal S1, S2 with no gallops. No murmurs ABDOMEN: Soft. Bowel sounds normal. Mild epigastric tenderness. No guarding or rigidity. No organomegaly. No abdominal bruits. Extremities: reveal no edema. No clubbing or cyanosis Neurologically awake, alert, oriented x3 with well-coordinated movements. No focal deficits noted Skin: No rash or skin lesions. Psychiatric: Cooperative. Non-suicidal, a little less anxious. Musculoskeletal: No joint swelling or deformity. Normal range of motion. Assessment: Acute pancreatitis likely EtOH related Lactic acidosis on admission, resolved Mild transaminitis secondary to alcohol intake, improved Leukocytosis with WBC 17.7 on admission, trending down ADD/ADHD history Anxiety history Currently everyday smoker and daily alcohol use Obesity with a BMI of 31.2 DVT prophylax with heparin subcu GI prophylaxis with PPI Full code Plan: Patient will be continued on IV hydration with normal saline and continue with pain management with Dilaudid. Patient was started on clear liquid and tolerating although reports continued abdominal pain. Per nursing staff patient has been requesting IV Dilaudid. Will adjust medications and also add oral pain medications. Advance diet to low fiber and instructed the patient if having continued pain then will go back to n.p.o. with just ice chips. Patient verbalized understanding Ultrasound gallbladder was ordered which showed hepatomegaly and no additional changes to suggest acute cholecystitis noted. Bilirubin level and alk phos is within normal limits. Currently denies any right upper quadrant abdominal pain. Continue to follow closely. Alcohol abstinence has been counseled extensively. Patient reports plan on returning to [place] for continued alcohol rehab Patient will be continued on Cymbalta and Effexor has been discontinued. Follow-up with repeat labs in the a.m. Encouraged increase activity as tolerated Objective - Vital Signs Vital signs: Vital Signs Temp 98.7 F 12/19/23 15:00 Pulse 76 12/19/23 15:00 Resp 16 12/19/23 15:00 BP 139/72 12/19/23 15:00 Pulse Ox 98 12/19/23 15:00 FiO2 Intake & Output 12/19/23 12/19/23 12/20/23 06:59 18:59 06:59 Intake Total 800 Balance 800 Intake: Intake, IV Titration 800 Amount Sodium Chloride 0.9% 1, 800 000 ml @ 100 mls/hr IV . Q10H [facility] Rx#:[id number] Other: Voiding Method Toilet # Voids 2 - Labs CBC & Chem 7: 12/20/23 06:30 12/20/23 06:31 Labs: Abnormal Lab Results - Last 24 Hours (Table) 12/19/23 12/19/23 Range/Units 09:52 09:52 RBC 3.83 L (4.30-5.90) m/uL Hgb 12.5 L D (13.0-17.5) gm/dL Hct 35.9 L (39.0-53.0) % Potassium 3.1 L (3.5-5.1) mmol/L BUN 7 L (9-20) mg/dL Creatinine 0.57 L (0.66-1.25) mg/dL Glucose 156 H (74-99) mg/dL Calcium 8.3 L (8.4-10.2) mg/dL Total Protein 5.4 L (6.3-8.2) g/dL Albumin 3.1 L (3.5-5.0) g/dL Lipase 1878 H (23-300) U/L Microbiology - Last 24 Hours (Table) 12/17/23 05:48 Blood Culture - Preliminary Blood
--- NOTE | 2023-12-21 01:41 | P.PN ---
Subjective Progress Note Date: 12/20/23 Patient is a 48-year-old male with a known history of hypertension, ADD/ADHD, anxiety, daily alcohol use and currently everyday smoker presents to ER with complaints of abdominal pain mainly in the epigastric and left upper quadrant. Patient has been having symptoms for the past 4 to 5 days associate with nausea and vomiting. Patient also has constipation recently. Patient was states that she has been anxious for t he past 2 months and has been drinking heavily due to that. He was started on Effexor by his primary care physician which patient states is not helping her. Otherwise denies any complaints of diarrhea. No chest pain or shortness of breath. No cough or sputum production. No fever no chills. Denies any recent illnesses. KUB x-ray showed moderate amount of stool otherwise nonspecific bowel gas pattern without radiographic evidence for acute process. CT of the abdomen pelvis showed changes relating to acute interstitial pancreatitis with moderate inflammation. Edema tracks down the mid and right retroperitoneum. No peripancreatic fluid collection identified. Hydropic gallbladder. In addition there is mild dilatation of the bile duct up to 8 mm. Correlate with alkaline phosphatase and bilirubin levels to exclude the possibility of early coronary obstruction as a potential etiology for the pancreatitis. Hepatomegaly at 20.4 cm with moderate to severe hepatic steatosis. Laboratory data showed sodium 132 potassium 3.6 chloride 96 BUN 21 creatinine 0.7 lactic acid 3.0 on admission AST 71 ALT 66 and alk phos 112, bilirubin level 1.3 Amylase 165 and lipase 662 and serum alcohol level is less than 10. 12/18/2023 Patient is seen and evaluated in follow-up today is continued on IV hydration with normal saline and liver functions are within normal limits and lactic acid has resolved. Potassium slightly low at 3.4 and will replace per protocol recommend follow-up labs. Per nursing staff patient continues to request IV pain medications although will transition and also discussed with the patient about avoiding IV narcotics and continuing with other pain control measures as patient will not be discharged back to [place] on IV Dilaudid. Patient plans on returning to [place] for continued alcohol rehab. Patient is currently afebrile reports attempted to tolerate some diet although feels abdominal pain with this as well. Will transition to low fiber and monitor for tolerance and encourage small frequent meals. Patient also instructed that if abdominal pain increases then to cut back on diet and continue with just ice chips and small sips of water. Patient has been also been instructed to increase activity as tolerated. Possible discharge planning to [place] in 24 hours. 3-2 24 Patient is lying in the bed. Awake alert and oriented x 3. Complains of worsening abdominal pain today. Requesting IV pain medications. Patient has been afebrile. No nausea vomiting abdominal pain or diarrhea. No cough or sputum production. No headache or dizziness or lightheadedness. Laboratory data showed WBC 8.4 hemoglobin 12.5 and platelets 205 Sodium 137 potassium 3.1 chloride 106 bicarbonate 27 BUN 7 creatinine 0.57 and blood sugar 8.3 albumin 3.1 Lipase level went up to 1878 today. 12/20/2023 Patient states that he is continues to have abdominal pain. Not able to eat much. Afebrile. No nausea or vomiting. No diarrhea. Patient is being continued on IV Dilaudid. Laboratory data showed WBC 9.7 hemoglobin 12.4 and platelets 230 Sodium 137 potassium 3.5 chloride 104 bicarb is 28 BUN 14 creatinine 0.59 and lipase level slightly improved to 1605 today. Review of systems: Constitutional: No reports of fatigue, fever, or chills Cardiovascular: No reports of chest pain or palpitations Respiratory: No reports of shortness of breath or cough GI: reports of continued nausea, no vomiting, or diarrhea, reports continued abdominal pain : No reports of dysuria or retention Neurovascular: No reports of weakness or numbness All medications have been reviewed PHYSICAL EXAMINATION: Patient is lying in the bed comfortably, no acute distress, awake alert and oriented.. Obese HEENT: Normocephalic. Neck is supple. Pupils reactive. Nostrils clear. Oral cavity is moist. Neck reveals no JVD, carotid bruits, or thyromegaly. CHEST EXAMINATION: Trachea is central. Symmetrical expansion. Lung nesbitt clear to auscultation and percussion. CARDIAC: Normal S1, S2 with no gallops. No murmurs ABDOMEN: Soft. Bowel sounds normal. Mild epigastric tenderness. No guarding or rigidity. No organomegaly. No abdominal bruits. Extremities: reveal no edema. No clubbing or cyanosis Neurologically awake, alert, oriented x3 with well-coordinated movements. No focal deficits noted Skin: No rash or skin lesions. Psychiatric: Cooperative. Non-suicidal, a little less anxious. Musculoskeletal: No joint swelling or deformity. Normal range of motion. Assessment: Acute pancreatitis likely EtOH related Lactic acidosis on admission, resolved Mild transaminitis secondary to alcohol intake, improved Leukocytosis with WBC 17.7 on admission, trending down ADD/ADHD history Anxiety history Currently everyday smoker and daily alcohol use Obesity with a BMI of 31.2 DVT prophylax with heparin subcu GI prophylaxis with PPI Full code Plan: Patient will be continued on IV hydration with normal saline and continue with pain management with Dilaudid. Patient was started on clear liquid and tolerating although reports continued abdominal pain. Per nursing staff patient has been requesting IV Dilaudid. Will adjust medications and also add oral pain medications. Advance diet to low fiber and instructed the patient if having continued pain then will go back to n.p.o. with just ice chips. Patient verbalized understanding Ultrasound gallbladder was ordered which showed hepatomegaly and no additional changes to suggest acute cholecystitis noted. Bilirubin level and alk phos is within normal limits. Currently denies any right upper quadrant abdominal pain. Continue to follow closely. Alcohol abstinence has been counseled extensively. Patient reports plan on returning to [place] for continued alcohol rehab Patient will be continued on Cymbalta and Effexor has been discontinued. Follow-up with repeat labs in the a.m. Encouraged increase activity as tolerated Objective - Vital Signs Vital signs: Vital Signs Temp 99.1 F 12/20/23 19:05 Pulse 91 12/20/23 19:05 Resp 15 12/20/23 19:05 BP 155/91 12/20/23 19:05 Pulse Ox 98 12/20/23 19:05 FiO2 Intake & Output 12/20/23 12/20/23 12/21/23 06:59 18:59 06:59 Intake Total 800 Balance 800 Intake: Intake, IV Titration 800 Amount Sodium Chloride 0.9% 1, 800 000 ml @ 100 mls/hr IV . Q10H [facility] Rx#:[id number] Other: Voiding Method Toilet Toilet # Voids 2 1 - Labs CBC & Chem 7: 12/20/23 06:30 12/20/23 06:31 Labs: Abnormal Lab Results - Last 24 Hours (Table) 12/20/23 12/20/23 Range/Units 06:30 06:31 RBC 3.94 L (4.30-5.90) m/uL Hgb 12.4 L (13.0-17.5) gm/dL Hct 37.0 L (39.0-53.0) % BUN 4 L (9-20) mg/dL Creatinine 0.59 L (0.66-1.25) mg/dL Total Protein 5.5 L (6.3-8.2) g/dL Albumin 3.1 L (3.5-5.0) g/dL Lipase 1605 H (23-300) U/L Microbiology - Last 24 Hours (Table) 12/17/23 05:48 Blood Culture - Preliminary Blood
[2023-12-21] MEDS: SODIUM CHLORIDE 0.9% 1,000 ML IV SCH (02:24)
[2023-12-21 08:50] LABS: Basophils # (A) 0.05 X 10*3/uL (0.00-0.10); Basophils % (A) 0.5 %; Eosinophils # (A) 0.16 X 10*3/uL (0.04-0.35); Eosinophils % (A) 1.6 %; HCT 39.2 % (39.6-50.0); HGB 13.7 g/dL (13.0-17.0); Lymphocytes # (A) 2.43 X 10*3/uL (0.90-5.00); Lymphocytes % (A) 24.7 %; MCHC 34.9 g/dL (32.0-37.0); MCV 91.6 FL (80.0-97.0); Mean Platelet Volume 9.6 FL (9.5-12.2); Monocytes # (A) 0.69 X 10*3/uL (0.20-1.00); NRBC Per 100 WBC 0 X 10*3/uL (0.00-0.01); Neutrophils # (A) 6.46 X 10*3/uL (1.80-7.70); Neutrophils % (A) 65.6 %; Platelet Count 276 X 10*3/uL (140-440); RBC 4.28 X 10*6/uL (4.40-5.60); RDW 12.5 % (11.5-14.5); WBC 9.85 X 10*3/uL (4.50-10.00)
[2023-12-21 08:54] LABS: Blood Urea Nitrogen 3.5 mg/dL (9.0-27.0); Calcium 9.3 mg/dL (8.7-10.3); Carbon Dioxide 26.2 mmol/L (21.6-31.8); Chloride 100 mmol/L (96-109); Glucose 96 mg/dL (70-110); Potassium 3.8 mmol/L (3.5-5.5); Sodium 142 mmol/L (135-145)
[2023-12-21 09:10] LABS: Lipase 565 U/L (14-60)
[2023-12-22 04:40] VITALS: RESP 16; TEMP 98.3
--- NOTE | 2023-12-22 05:46 | P.PN ---
Subjective Progress Note Date: 12/21/23 Patient is a 48-year-old male with a known history of hypertension, ADD/ADHD, anxiety, daily alcohol use and currently everyday smoker presents to ER with complaints of abdominal pain mainly in the epigastric and left upper quadrant. Patient has been having symptoms for the past 4 to 5 days associate with nausea and vomiting. Patient also has constipation recently. Patient was states that she has been anxious for t he past 2 months and has been drinking heavily due to that. He was started on Effexor by his primary care physician which patient states is not helping her. Otherwise denies any complaints of diarrhea. No chest pain or shortness of breath. No cough or sputum production. No fever no chills. Denies any recent illnesses. KUB x-ray showed moderate amount of stool otherwise nonspecific bowel gas pattern without radiographic evidence for acute process. CT of the abdomen pelvis showed changes relating to acute interstitial pancreatitis with moderate inflammation. Edema tracks down the mid and right retroperitoneum. No peripancreatic fluid collection identified. Hydropic gallbladder. In addition there is mild dilatation of the bile duct up to 8 mm. Correlate with alkaline phosphatase and bilirubin levels to exclude the possibility of early coronary obstruction as a potential etiology for the pancreatitis. Hepatomegaly at 20.4 cm with moderate to severe hepatic steatosis. Laboratory data showed sodium 132 potassium 3.6 chloride 96 BUN 21 creatinine 0.7 lactic acid 3.0 on admission AST 71 ALT 66 and alk phos 112, bilirubin level 1.3 Amylase 165 and lipase 662 and serum alcohol level is less than 10. 12/18/2023 Patient is seen and evaluated in follow-up today is continued on IV hydration with normal saline and liver functions are within normal limits and lactic acid has resolved. Potassium slightly low at 3.4 and will replace per protocol recommend follow-up labs. Per nursing staff patient continues to request IV pain medications although will transition and also discussed with the patient about avoiding IV narcotics and continuing with other pain control measures as patient will not be discharged back to [place] on IV Dilaudid. Patient plans on returning to [place] for continued alcohol rehab. Patient is currently afebrile reports attempted to tolerate some diet although feels abdominal pain with this as well. Will transition to low fiber and monitor for tolerance and encourage small frequent meals. Patient also instructed that if abdominal pain increases then to cut back on diet and continue with just ice chips and small sips of water. Patient has been also been instructed to increase activity as tolerated. Possible discharge planning to [place] in 24 hours. 3-2 24 Patient is lying in the bed. Awake alert and oriented x 3. Complains of worsening abdominal pain today. Requesting IV pain medications. Patient has be en afebrile. No nausea vomiting abdominal pain or diarrhea. No cough or sputum production. No headache or dizziness or lightheadedness. Laboratory data showed WBC 8.4 hemoglobin 12.5 and platelets 205 Sodium 137 potassium 3.1 chloride 106 bicarbonate 27 BUN 7 creatinine 0.57 and blood sugar 8.3 albumin 3.1 Lipase level went up to 1878 today. 12/20/2023 Patient states that he is continues to have abdominal pain. Not able to eat much. Afebrile. No nausea or vomiting. No diarrhea. Patient is being continued on IV Dilaudid. Laboratory data showed WBC 9.7 hemoglobin 12.4 and platelets 230 Sodium 137 potassium 3.5 chloride 104 bicarb is 28 BUN 14 creatinine 0.59 and lipase level slightly improved to 1605 today. 12/21/2023 Patient is seen and evaluated in follow-up today and continues to report abdominal pain. Patient being treated with gentle IV hydration and pain medication for pancreatitis. Patient was having increased pain and was made n.p.o. Will advance diet and monitor for tolerance. Encouraged to increase activity as tolerated and avoiding IV narcotics. Patient will be returning to [place] once medically stable. Patient is afebrile denies chest pain or shortness of breath. Review of systems: Constitutional: No reports of fatigue, fever, or chills Cardiovascular: No reports of chest pain or palpitations Respiratory: No reports of shortness of breath or cough GI: reports of continued nausea, no vomiting, or diarrhea, reports continued abdominal pain : No reports of dysuria or retention Neurovascular: No reports of weakness or numbness All medications have been reviewed PHYSICAL EXAMINATION: Patient is lying in the bed , awake alert and oriented.. Well-developed, well- nourished obese HEENT: Normocephalic. Neck is supple. Pupils reactive. Nostrils clear. Oral cavity is moist. Neck reveals no JVD, carotid bruits, or thyromegaly. CHEST EXAMINATION: Trachea is central. Symmetrical expansion. Lung nesbitt clear to auscultation and percussion. CARDIAC: Normal S1, S2 with no gallops. No murmurs ABDOMEN: Soft. Bowel sounds normal. Mild epigastric tenderness. No guarding or rigidity. No organomegaly. No abdominal bruits. Extremities: reveal no edema. No clubbing or cyanosis Neurologically awake, alert, oriented x3 with well-coordinated movements. No focal deficits noted Skin: No rash or skin lesions. Psychiatric: Cooperative. Non-suicidal Musculoskeletal: No joint swelling or deformity. Normal range of motion. Assessment: Acute pancreatitis likely EtOH related Lactic acidosis on admission, resolved Mild transaminitis secondary to alcohol intake, improved Leukocytosis with WBC 17.7 on admission, trending down ADD/ADHD history Anxiety history Currently everyday smoker and daily alcohol use Obesity with a BMI of 31.2 DVT prophylax with heparin subcu GI prophylaxis with PPI Full code Plan: Patient will be continued on IV hydration with normal saline and continue with pain management with Dilaudid. Patient was started on clear liquid and tolerating although reports continued abdominal pain. Per nursing staff patient has been requesting IV Dilaudid. Continue to limit IV pain medication. Patient was n.p.o. as patient had increased abdominal pain and will advance diet slowly as tolerated Follow-up on repeat labs as lipase is trending down. Ultrasound gallbladder was done which showed hepatomegaly and no additional changes to suggest acute cholecystitis noted. Bilirubin level and alk phos is within normal limits. Currently denies any right upper quadrant abdominal pain. Continue to follow closely. Alcohol abstinence has been counseled extensively. Patient reports plan on returning to [place] for continued alcohol rehab Follow-up with repeat labs in the a.m. Encouraged increase activity as tolerated Possible discharge to [place] in the next 24 hours The impression and plan of care has been dictated by Thuy Padgett, Nurse Practitioner as directed. Dr. Iglesia MD I have performed a history and examination and MDM of this patient, discussed the same with the dictator, and agree with the dictator's assessment and plan as written ,documented as a scribe. Based on total visit time, I have performed more than 50% of the visit. Objective - Vital Signs Vital signs: Vital Signs Temp 98.6 F 12/21/23 07:00 Pulse 86 12/21/23 07:00 Resp 15 12/21/23 07:00 BP 140/94 12/21/23 07:00 Pulse Ox 98 12/21/23 07:00 FiO2 Intake & Output 12/20/23 12/21/23 12/21/23 18:59 06:59 18:59 Intake Total 800 Balance 800 Intake: Intake, IV Titration 800 Amount Sodium Chloride 0.9% 1, 800 000 ml @ 100 mls/hr IV . Q10H [facility] Rx#:[id number] Other: Voiding Method Toilet # Voids 1 - Labs CBC & Chem 7: 12/21/23 04:14 12/21/23 04:14 Labs: Abnormal Lab Results - Last 24 Hours (Table) 12/21/23 12/21/23 Range/Units 04:14 04:14 RBC 4.28 L (4.40-5.60) X 10*6/uL Hct 39.2 L (39.6-50.0) % Immature Gran # 0.06 H (0.00-0.04) X 10*3/uL Anion Gap 15.80 H (4.00-12.00) mmol/L BUN 3.5 L (9.0-27.0) mg/dL BUN/Creatinine Ratio 5.00 L (12.00-20.00) Ratio Lipase 565 H (14-60) U/L Microbiology - Last 24 Hours (Table) 12/17/23 05:48 Blood Culture - Preliminary Blood
[2023-12-22 08:46] LABS: Basophils # (A) 0.05 X 10*3/uL (0.00-0.10); Basophils % (A) 0.7 %; Eosinophils # (A) 0.22 X 10*3/uL (0.04-0.35); Eosinophils % (A) 3.1 %; HCT 37.7 % (39.6-50.0); HGB 12.9 g/dL (13.0-17.0); Lymphocytes # (A) 2.14 X 10*3/uL (0.90-5.00); Lymphocytes % (A) 30.1 %; MCH 31.1 pg (27.0-32.0); MCHC 34.2 g/dL (32.0-37.0); MCV 90.8 FL (80.0-97.0); Mean Platelet Volume 8.9 FL (9.5-12.2); Monocytes # (A) 0.77 X 10*3/uL (0.20-1.00); Monocytes % (A) 10.8 %; NRBC Per 100 WBC 0 X 10*3/uL (0.00-0.01); Neutrophils # (A) 3.85 X 10*3/uL (1.80-7.70); Neutrophils % (A) 54.2 %; Platelet Count 263 X 10*3/uL (140-440); RBC 4.15 X 10*6/uL (4.40-5.60); RDW 12.7 % (11.5-14.5); WBC 7.11 X 10*3/uL (4.50-10.00)
[2023-12-22 08:59] LABS: Amylase 291 U/L (23-121); BUN/Creat Ratio 5.25 Ratio (12.00-20.00); Blood Urea Nitrogen 4.2 mg/dL (9.0-27.0); Calcium 8.9 mg/dL (8.7-10.3); Carbon Dioxide 28.7 mmol/L (21.6-31.8); Chloride 102 mmol/L (96-109); Glucose 104 mg/dL (70-110); Magnesium 2.2 mg/dL (1.5-2.4); Potassium 4.4 mmol/L (3.5-5.5); Sodium 139 mmol/L (135-145)
[2023-12-22 09:11] VITALS: BP 137/87; PULSE 90
[2023-12-22 09:15] LABS: Lipase 361 U/L (14-60)
--- NOTE | 2023-12-22 16:02 | P.DS ---
Providers Date of admission: 12/20/23 23:10 Expected date of discharge: 12/22/23 Attending physician: Diamante Posey Primary care physician: Stated None Hospital Course: Final diagnosis Acute pancreatitis likely EtOH related, improved Lactic acidosis on admission, resolved Mild transaminitis secondary to alcohol intake, resolved Leukocytosis with WBC 17.7 on admission, resolved ADD/ADHD history Anxiety history Currently everyday smoker and daily alcohol use Obesity with a BMI of 31.2 DVT prophylax GI prophylaxis Full code Discharge disposition Patient is being discharged in a stable condition with guarded prognosis to home as patient was supposed to return to [place] for continued inpatient alcohol rehab. Patient will follow-up with his primary care provider Dr. Lui in the [place] area in the outpatient setting upon discharge. Patient is to continue with low fiber diet and slowly advance as tolerated. Total time taken is greater than 35 minutes. Hospital course This is a 48-year-old male who was recently admitted to [facility] with concerns of abdominal pain with acute pancreatitis being closely monitored. Patient was at [place] rehab for continued inpatient alcohol rehab developed abdominal pain and came to the hospital for further evaluation. Lipase was 1878 and currently down to 361 and liver functions have improved and there is no white count. Vital signs are stable and patient has been advanced in diet and tolerating recommend to continue with full liquids and/or soft and low fiber diet for the next few days and slowly advance as tolerated. Patient did have CT abdomen in the ER on admission which showed acute interstitial pancreatitis and moderate inflammation along with a hydropic gallbladder and hepatomegaly with hepatic steatosis all likely secondary to continued alcohol use. Patient underwent ultrasound of the gallbladder which showed a prominent gallbladder, somewhat with no changes to suggest acute cholecystitis as well as continued hepatomegaly as noted on CT. Patient was maintained on n.p.o. and gentle IV hydration with pain management, antinausea medication, and proton pump inhibitor medications slowly showing some improvements. There is currently no GI services available in this hospital and patient was seen and evaluated by medical physicians and treated accordingly. Patient has been instructed to follow-up with primary care provider on discharge as well as continued inpatient alcohol rehab at [place]. Patient was started on Cymbalta in hospital and Effexor was discontinued and instructed to follow-up with primary care provider for adjustments in medications. Patient also to follow with [facility] in the outpatient setting. Patient is medically stable for discharge and should be returning to [place] for continued inpatient alcohol rehab. Currently no reports of chest pain, shortness of breath, or palpitations. Patient is afebrile. No reports of nausea or vomiting and patient is tolerating diet. Patient will be going to [place] today. Patient is medically stable and cleared by inpatient physicians for discharge today Physical exam: Gen: This is a 48-year-old male who is awake, alert and oriented x 3, well- developed, well-nourished, obese HEENT: Head is atraumatic, normocephalic. Pupils equal, round. Sclerae is anicteric. NECK: Supple. No JVD. No lymphadenopathy. No thyromegaly. LUNGS: Clear to auscultation. No wheezes or rhonchi. No intercostal retractions. HEART: Regular rate and rhythm. No murmur. ABDOMEN: Soft. Bowel sounds are present. No masses. No tenderness. EXTREMITIES: No pedal edema. No calf tenderness. NEUROLOGICAL: Patient is awake, alert and oriented x3. Cranial nerves 2 through 12 are grossly intact. Please refer to medication reconciliation sheet for a list of medications. The impression and plan of care has been dictated by Thuy Padgett, Nurse Practitioner as directed. Dr. Iglesia MD I have performed a history and examination and MDM of this patient, discussed the same with the dictator, and agree with the dictator's assessment and plan as written ,documented as a scribe. Based on total visit time, I have performed more than 50% of the visit. Patient Condition at Discharge: Stable Plan - Discharge Summary Discharge Rx Participant: No New Discharge Prescriptions: New DULoxetine HCL [Cymbalta] 20 mg PO DAILY 30 Days #30 cap Acetaminophen Tab [Tylenol] 650 mg PO Q6HR PRN tab PRN Reason: Mild Pain Or Fever > 100.5 Continue Atorvastatin Calcium 20 mg PO HS Oxybutynin ER [Ditropan XL] 15 mg PO DAILY Ondansetron Odt [Zofran ODT] 4 mg PO Q8HR PRN PRN Reason: Nausea Omeprazole [PriLOSEC] 20 mg PO DAILY Losartan [Cozaar] 50 mg PO DAILY amLODIPine [Norvasc] 2.5 mg PO DAILY Discontinued Venlafaxine HCl [Effexor] 37.5 mg PO DAILY Discharge Medication List Atorvastatin Calcium 20 mg PO HS 12/16/23 [History] Losartan [Cozaar] 50 mg PO DAILY 12/16/23 [History] Omeprazole [PriLOSEC] 20 mg PO DAILY 12/16/23 [History] Ondansetron Odt [Zofran ODT] 4 mg PO Q8HR PRN 12/16/23 [History] Oxybutynin ER [Ditropan XL] 15 mg PO DAILY 12/16/23 [History] amLODIPine [Norvasc] 2.5 mg PO DAILY 12/16/23 [History] Acetaminophen Tab [Tylenol] 650 mg PO Q6HR PRN tab 12/22/23 [Rx] DULoxetine HCL [Cymbalta] 20 mg PO DAILY 30 Days #30 cap 12/22/23 [Rx] Follow up Appointment(s)/Referral(s): None,Stated [Primary Care Provider] - 1 Week (Patient has primary care provider Dr. Lui in [place] and has been instructed to follow-up after [place] rehab) Activity/Diet/Wound Care/Special Instructions: Patient going to [place] Activity as tolerated Follow-up with primary care provider on discharge Continue low fiber/full liquid diet over the next few days and slowly advance as tolerated Continue to avoid all alcohol intake and exposure Discuss with your primary care provider regarding Cymbalta and adjustments to medications. Follow-up [facility] outpatient. Download the [employer] for discounts on prescription refills Discharge Disposition: HOME SELF-CARE
== END 2023-12-22 18:32 | disposition home or self-care (01) | DRG 282 ==
LOC: EC 11:06 → 6NMEDSUR 18:04 → OBSVTOIN 12-20 23:10
PROVIDERS: ADMIT Internal Medicine; ATTEND Internal Medicine
DX: K85.20 Alcohol induced acute pancreatitis without necrosis or infection (principal); Z68.31 Body mass index [BMI] 31.0-31.9, adult; K82.1 Hydrops of gallbladder; R16.0 Hepatomegaly, not elsewhere classified; K76.0 Fatty (change of) liver, not elsewhere classified; K83.8 Other specified diseases of biliary tract; K59.00 Constipation, unspecified; I10 Essential (primary) hypertension; F90.9 Attention-deficit hyperactivity disorder, unspecified type; F41.9 Anxiety disorder, unspecified; F17.200 Nicotine dependence, unspecified, uncomplicated; F10.90 Alcohol use, unspecified, uncomplicated; E87.20 Acidosis, unspecified; R74.01 Elevation of levels of liver transaminase levels; E66.9 Obesity, unspecified; Z71.3 Dietary counseling and surveillance; Z86.73 Personal history of transient ischemic attack (TIA), and cerebral infarction without residual deficits; Z79.899 Other long term (current) drug therapy
CPT/HCPCS: 36415; 74018; 74177; 76705; 80048; 80053; 80320; 82150; 83605; 83690; 83735; 84145; 85025; 86140; 87040; 87636; 93005; 96361; 96374; 96375; 96376; 99285

== ENCOUNTER 2024-01-12 08:42 | Inpatient (IN) | payer OTHER ==
--- NOTE | 2024-01-12 08:47 | ED ---
General Adult HPI - General Stated complaint: REBEL Time Seen by Provider: 01/12/24 08:42 Source: patient, RN notes reviewed, old records reviewed - History of Present Illness Initial comments: This is a 48-year-old male who presents to the emergency department from [facility]. Patient is there for alcohol and opiates. Patient comes in today because he is complaining of difficulty breathing. Patient st ates he is a smoker according to EMS when they arrived he had already had a breathing treatment and he was sat about 90% I did put him on 2 L. Patient states he does not have any chest pain except if he coughs really hard. Patient denies any sputum production. Patient states he does have a cold and has been having some upper respiratory symptoms such as a cough and congestion for the last 2 to 3 days. Patient denies any headache patient has numbness weakness. Patient has any back pain or abdominal pain. Patient denies any nausea vomiting diarrhea - Related Data Home Medications Medication Instructions Recorded Confirmed Atorvastatin Calcium 20 mg PO HS 12/16/23 01/12/24 Losartan [Cozaar] 50 mg PO DAILY 12/16/23 01/12/24 Omeprazole [PriLOSEC] 20 mg PO DAILY 12/16/23 01/12/24 Oxybutynin ER [Ditropan XL] 15 mg PO DAILY 12/16/23 01/12/24 amLODIPine [Norvasc] 2.5 mg PO DAILY 12/16/23 01/12/24 Acetaminophen Tab [Tylenol] 650 mg PO Q4H PRN 01/12/24 01/12/24 Calcium, Magnesium, Zinc, With 1 tab PO TID PRN 01/12/24 01/12/24 Vitamin D3 Chlorpheniramine Maleate 4 mg PO Q4H PRN 01/12/24 01/12/24 [Chlor-Trimeton] Hyoscyamine Sulfate [Levsin] 0.125 mg PO QID PRN 01/12/24 01/12/24 Ibuprofen [Motrin Ib] 600 mg PO Q6H PRN 01/12/24 01/12/24 Loperamide HCl [Imodium A-D] 4 mg PO QID PRN MDD 16 mg 01/12/24 01/12/24 Magnesium Hydroxide [Milk of 2,400 mg PO BID PRN 01/12/24 01/12/24 Magnesia] Melatonin 10 mg PO HS 01/12/24 01/12/24 Multivitamins, Thera [Multivitamin 1 tab PO DAILY 01/12/24 01/12/24 (formulary)] Mylanta Regular Strength 30 ml PO Q4H PRN 01/12/24 01/12/24 Thiamine [Vitamin B-1] 100 mg PO DAILY 01/12/24 01/12/24 cloNIDine HCL [Catapres] 0.1 - 0.3 mg PO Q4H PRN 01/12/24 01/12/24 guaiFENesin [guaiFENesin Oral 200 mg PO Q4H PRN 01/12/24 01/12/24 Solution] ondansetron HCL [Zofran] 8 mg PO Q6H PRN 01/12/24 01/12/24 traZODone HCL [Desyrel] 50 - 150 mg PO HS PRN 01/12/24 01/12/24 Previous Rx's Medication Instructions Recorded DULoxetine HCL [Cymbalta] 20 mg PO DAILY 30 Days #30 cap 12/22/23 Albuterol Inhaler [Ventolin Hfa 1 - 2 puff INHALATION Q6HR PRN #2 01/12/24 Inhaler] each Oseltamivir [Tamiflu] 75 mg PO Q12HR #10 cap 01/12/24 predniSONE [Deltasone] 40 mg PO DAILY #8 tab 01/12/24 Allergies Allergy/AdvReac Type Severity Reaction Status Date / Time No Known Allergies Allergy Verified 01/12/24 09:59 Review of Systems ROS Statement: Those systems with pertinent positive or pertinent negative responses have been documented in the HPI. ROS Other: All systems not noted in ROS Statement are negative. Past Medical History Past Medical History: Hypertension Additional Past Medical History / Comment(s): TIA 10 years ago, History of Any Multi-Drug Resistant Organisms: None Reported Past Surgical History: Hernia Repair Additional Past Surgical History / Comment(s): diffuse cysts Past Anesthesia/Blood Transfusion Reactions: No Reported Reaction Past Psychological History: ADD/ADHD, Anxiety Smoking Status: Current every day smoker Past Alcohol Use History: Daily Past Drug Use History: Opiates General Exam - General Exam Comments Initial Comments: GENERAL: Patient is well-developed and well-nourished. Patient is nontoxic and well- hydrated and is in mild distress. ENT: Neck is soft and supple. No significant lymphadenopathy is noted. Oropharynx is clear. Moist mucous membranes. Neck has full range of motion without eliciting any pain. EYES: The sclera were anicteric and conjunctiva were pink and moist. Extraocular movements were intact and pupils were equal round and reactive to light. Eyelids were unremarkable. PULMONARY: Unlabored respirations. Good breath sounds bilaterally. Slight expiratory wheeze CARDIOVASCULAR: There is a regular rate and rhythm without any murmurs gallops or rubs. ABDOMEN: Soft and nontender with normal bowel sounds. No palpable organomegaly was noted. There is no palpable pulsatile mass. SKIN: Skin is clear with no lesions or rashes and otherwise unremarkable. NEUROLOGIC: Patient is alert and oriented x3. Cranial nerves II through XII are grossly intact. Motor and sensory are also intact. Normal speech, volume and content. Symmetrical smile. MUSCULOSKELETAL: Normal extremities with adequate strength and full range of motion. No lower extremity swelling or edema. No calf tenderness. LYMPHATICS: No significant lymphadenopathy is noted PSYCHIATRIC: Normal psychiatric evaluation. Course Vital Signs 01/12/24 01/12/24 01/12/24 08:43 08:45 08:50 Temperature 98.9 F Pulse Rate 99 Respiratory 20 18 Rate Blood Pressure 109/68 O2 Sat by Pulse 83 L 96 Oximetry 01/12/24 01/12/24 01/12/24 08:55 09:03 10:00 Temperature Pulse Rate 94 96 88 Respiratory 18 Rate Blood Pressure 103/66 O2 Sat by Pulse 93 L Oximetry 01/12/24 01/12/24 01/12/24 11:17 11:23 11:28 Temperature Pulse Rate 91 86 Respiratory 18 Rate Blood Pressure 101/64 O2 Sat by Pulse 88 L 92 L Oximetry 01/12/24 11:46 Temperature Pulse Rate 88 Respiratory Rate Blood Pressure O2 Sat by Pulse Oximetry Medical Decision Making - Medical Decision Making EKG is interpreted by myself but EKG shows a sinus rhythm at 91 bpm parable 156 QRS is 99 QT interval 367 QTc is 416. Patient's EKG shows no ST segment ovation or depression Was pt. sent in by a medical professional or institution (, PA, CERTIFIED PHYSICAL THERAPIST ASSISTANT, urgent care, hospital, or usp...) When possible be specific @ -Patient was sent into us by [facility] Did you speak to anyone other than the patient for history (EMS, parent, family, police, friend...)? What history was obtained from this source @ -No Did you review nursing and triage notes (agree or disagree)? Why? @ -I reviewed and agree with nursing and triage notes Were old charts reviewed (outside hosp., previous admission, EMS record, old EKG, old radiological studies, urgent care reports/EKG's, usp records)? Report findings @ -No old charts were reviewed Differential Diagnosis (chest pain, altered mental status, abdominal pain women, abdominal pain men, vaginal bleeding, weakness, fever, dyspnea, syncope, headache, dizziness, GI bleed, back pain, seizure, CVA, palpatations, mental health, musculoskeletal)? @ -Differential Dyspnea: Coronary syndrome, arrhythmia, tamponade, asthma, COPD, pulmonary embolism, pneumonia, pneumothorax, pulmonary effusion, anaphylaxis, diabetic ketoacidosis, flailed chest, pulmonary contusion, diaphragmatic rupture, anemia, neuromusc ular, this is not meant to be an all-inclusive list. EKG interpreted by me (3pts min.). @ -As above X-rays interpreted by me (1pt min.). @ -Chest x-ray shows some atelectasis but no acute abnormality CT interpreted by me (1pt min.). @ -None done U/S interpreted by me (1pt. min.). @ -None done What testing was considered but not performed or refused? (CT, X-rays, U/S, labs)? Why? @ -None What meds were considered but not given or refused? Why? @ -None Did you discuss the management of the patient with other professionals (professionals i.e. , PA, CERTIFIED PHYSICAL THERAPIST ASSISTANT, lab, RT, psych nurse, social media marketer, release of information clerk, teacher, commissioned fire officer, employment case manager)? Give summary @ -Patient received steroids and a breathing treatment in the emergency department as well as Tamiflu and he was feeling better patient will be sent home with Tamiflu steroids and inhalers Was smoking cessation discussed for >3mins.? @ -No Was critical care preformed (if so, how long)? @ -No Were there social determinants of health that impacted care today? How? (Homelessness, low income, unemployed, alcoholism, drug addiction, transport ation, low edu. Level, literacy, decrease access to med. care, long term, rehab)? @ -No Was there de-escalation of care discussed even if they declined (Discuss DNR or withdrawal of care, Hospice)? DNR status @ -No What co-morbidities impacted this encounter? (DM, HTN, Smoking, COPD, CAD, Cancer, CVA, ARF, Chemo, Hep., AIDS, mental health diagnosis, sleep apnea, morbid obesity)? @ -None Was patient admitted / discharged? Hospital course, mention meds given and route, prescriptions, significant lab abnormalities, going to OR and other pertinent info. @ -Patient received albuterol treatment as well as steroids and Tamiflu. Patient's pulse ox dropped to 87 so the patient received 2 more breathing t reatment. Patient is pulse ox again dropped to 86 so we are admitting the patient for bronchospasms and influenza A. I called [facility] hospitalist they agreed to admit the patient admit the patient and wrote admitting orders Undiagnosed new problem with uncertain prognosis? @ -No Drug Therapy requiring intensive monitoring for toxicity (Heparin, Nitro, Insulin, Cardizem)? @ -No Were any procedures done? @ -No Diagnosis/symptom? @ -Influenza A Acute, or Chronic, or Acute on Chronic? @ -Acute Uncomplicated (without systemic symptoms) or Complicated (systemic symptoms)? @ -Complicated Side effects of treatment? @ -No Exacerbation, Progression, or Severe Exacerbation? @ -No Poses a threat to life or bodily function? How? (Chest pain, [place], ND, pneumonia, PE, COPD, DKA, ARF, appy, cholecystitis, CVA, Diverticulitis, Homicidal, Suicidal, threat to staff... and all critical care pts) @ -No Diagnosis/symptom? @ -Bronchospasms Acute, or Chronic, or Acute on Chronic? @ -Acute Uncomplicated (without systemic symptoms) or Complicated (systemic symptoms)? @ -Complicated Side effects of treatment? @ -None Exacerbation, Progression, or Severe Exacerbation] @ -No Poses a threat to life or bodily function? @ -No - Lab Data Result diagrams: 01/12/24 08:53 01/12/24 08:53 Lab Results 01/12/24 01/12/24 01/12/24 Range/Units 08:53 08:53 08:53 WBC 9.3 (3.8-10.6) k/uL RBC 3.96 L (4.30-5.90) m/uL Hgb 12.5 L (13.0-17.5) gm/dL Hct 37.9 L (39.0-53.0) % MCV 95.6 (80.0-100.0) fL MCH 31.6 (25.0-35.0) pg MCHC 33.1 (31.0-37.0) g/dL RDW 13.1 (11.5-15.5) % Plt Count 234 (150-450) k/uL MPV 7.5 Neutrophils % 85 % Lymphocytes % 7 % Monocytes % 5 % Eosinophils % 2 % Basophils % 0 % Neutrophils # 7.9 H (1.3-7.7) k/uL Lymphocytes # 0.6 L (1.0-4.8) k/uL Monocytes # 0.4 (0-1.0) k/uL Eosinophils # 0.1 (0-0.7) k/uL Basophils # 0.0 (0-0.2) k/uL PT 10.4 (10.0-12.5) sec INR 0.9 (<1.2) APTT 30.0 (22.0-30.0) sec D-Dimer 0.40 (<0.60) mg/L FEU Sodium 136 L (137-145) mmol/L Potassium 4.2 (3.5-5.1) mmol/L Chloride 104 (98-107) mmol/L Carbon Dioxide 25 (22-30) mmol/L Anion Gap 7 mmol/L BUN 11 (9-20) mg/dL Creatinine 0.72 (0.66-1.25) mg/dL Est GFR (CKD-EPI)AfAm >90 (>60 ml/min/1.73 sqM) Est GFR (CKD-EPI)NonAf >90 (>60 ml/min/1.73 sqM) Glucose 111 H (74-99) mg/dL Plasma Lactic Acid Porfirio (0.7-2.0) mmol/L Calcium 8.2 L (8.4-10.2) mg/dL Magnesium 1.8 (1.6-2.3) mg/dL Total Bilirubin 0.7 (0.2-1.3) mg/dL AST 34 (17-59) U/L ALT 23 (4-49) U/L Alkaline Phosphatase 56 (38-126) U/L Troponin I (0.000-0.034) ng/mL Total Protein 6.2 L (6.3-8.2) g/dL Albumin 3.5 (3.5-5.0) g/dL Influenza Type A (PCR) (Not Detectd) Influenza Type B (PCR) (Not Detectd) RSV (PCR) (Not Detectd) SARS-CoV-2 (PCR) (Not Detectd) 01/12/24 01/12/24 01/12/24 Range/Units 08:53 08:53 09:56 WBC (3.8-10.6) k/uL RBC (4.30-5.90) m/uL Hgb (13.0-17.5) gm/dL Hct (39.0-53.0) % MCV (80.0-100.0) fL MCH (25.0-35.0) pg MCHC (31.0-37.0) g/dL RDW (11.5-15.5) % Plt Count (150-450) k/uL MPV Neutrophils % % Lymphocytes % % Monocytes % % Eosinophils % % Basophils % % Neutrophils # (1.3-7.7) k/uL Lymphocytes # (1.0-4.8) k/uL Monocytes # (0-1.0) k/uL Eosinophils # (0-0.7) k/uL Basophils # (0-0.2) k/uL PT (10.0-12.5) sec INR (<1.2) APTT (22.0-30.0) sec D-Dimer (<0.60) mg/L FEU Sodium (137-145) mmol/L Potassium (3.5-5.1) mmol/L Chloride (98-107) mmol/L Carbon Dioxide (22-30) mmol/L Anion Gap mmol/L BUN (9-20) mg/dL Creatinine (0.66-1.25) mg/dL Est GFR (CKD-EPI)AfAm (>60 ml/min/1.73 sqM) Est GFR (CKD-EPI)NonAf (>60 ml/min/1.73 sqM) Glucose (74-99) mg/dL Plasma Lactic Acid Porfirio 0.7 (0.7-2.0) mmol/L Calcium (8.4-10.2) mg/dL Magnesium (1.6-2.3) mg/dL Total Bilirubin (0.2-1.3) mg/dL AST (17-59) U/L ALT (4-49) U/L Alkaline Phosphatase (38-126) U/L Troponin I <0.012 (0.000-0.034) ng/mL Total Protein (6.3-8.2) g/dL Albumin (3.5-5.0) g/dL Influenza Type A (PCR) Detected A (Not Detectd) Influenza Type B (PCR) Not Detected (Not Detectd) RSV (PCR) Not Detected (Not Detectd) SARS-CoV-2 (PCR) Not Detected (Not Detectd) Disposition Clinical Impression: Influenza, Acute bronchospasm Disposition: ADMITTED IP TO THIS HOSP Prescriptions: predniSONE [Deltasone] 40 mg PO DAILY #8 tab Oseltamivir [Tamiflu] 75 mg PO Q12HR #10 cap Albuterol Inhaler [Ventolin Hfa Inhaler] 1 - 2 puff INHALATION Q6HR PRN #2 each PRN Reason: Difficulty breathing Referrals: None,Stated [REFERRING] - 1-2 days Time of Disposition: 12:02
[2024-01-12] MEDS: IPRATROPIUM-ALBUTEROL 3 ML NEB INHALATION STA ×2 (08:55→11:28)
[2024-01-12 09:09] LABS: Basophils % (A) 0 %; Eosinophils # (A) 0.1 k/uL (0-0.7); Eosinophils % (A) 2 %; HCT 37.9 % (39.0-53.0); HGB 12.5 gm/dL (13.0-17.5); Lymphocytes # (A) 0.6 k/uL (1.0-4.8); Lymphocytes % (A) 7 %; MCH 31.6 pg (25.0-35.0); MCHC 33.1 g/dL (31.0-37.0); MCV 95.6 fL (80.0-100.0); Mean Platelet Volume 7.5; Monocytes # (A) 0.4 k/uL (0-1.0); Monocytes % (A) 5 %; Neutrophils # (A) 7.9 k/uL (1.3-7.7); Neutrophils % (A) 85 %; Platelet Count 234 k/uL (150-450); RBC 3.96 m/uL (4.30-5.90); RDW 13.1 % (11.5-15.5); WBC 9.3 k/uL (3.8-10.6)
[2024-01-12 09:27] LABS: INR 0.9 (<1.2); Prothrombin Time 10.4 sec (10.0-12.5)
[2024-01-12 09:31] LABS: ALT 23 U/L (4-49); African American GFR (CKD) >90 (>60 ml/min/1.73 sqM); Albumin 3.5 g/dL (3.5-5.0); Anion Gap 7 mmol/L; Blood Urea Nitrogen 11 mg/dL (9-20); Calcium 8.2 mg/dL (8.4-10.2); Carbon Dioxide 25 mmol/L (22-30); Chloride 104 mmol/L (98-107); Glucose 111 mg/dL (74-99); Non-African American GFR(CKD) >90 (>60 ml/min/1.73 sqM); Sodium 136 mmol/L (137-145); Total Bilirubin 0.7 mg/dL (0.2-1.3)
[2024-01-12 09:48] LABS: AST 34 U/L (17-59); Magnesium 1.8 mg/dL (1.6-2.3); Potassium 4.2 mmol/L (3.5-5.1); Total Protein 6.2 g/dL (6.3-8.2)
[2024-01-12 09:49] LABS: Alkaline Phosphatase 56 U/L (38-126)
[2024-01-12] MEDS: SODIUM CHLORIDE 0.9% 500 ML 500 ML IV STA (09:58)
[2024-01-12] MEDS: methylPREDNISolone SOD SUCCI 125 MG/2 ML VIAL IV STA (09:58)
--- NOTE | 2024-01-12 10:29 | XR ---
EXAMINATION TYPE: XR chest 2V DATE OF EXAM: 01/12/2024 COMPARISON: NONE TECHNIQUE: PA and lateral views submitted. HISTORY: Shortness of breath FINDINGS: There is patchy bilateral subsegmental consolidation. Limited inspiration. There is no pneumothorax, pleural effusion, or focal pneumonia. Heart size normal and no overt failure. Osseous structures dem onstrate hypertrophic and degenerative changes of the spine. IMPRESSION: 1. Patchy bilateral lower lobe atelectasis or early pneumonia greater on the right. Correlate clinica lly.
[2024-01-12] MEDS: OSELTAMIVIR 75 MG CAP PO STA (11:16)
[2024-01-12] MEDS ORDERED: NALOXONE 0.4 MG/ML 1 ML VIAL IVP PRN (12:02)
[2024-01-12] MEDS ORDERED: ACETAMINOPHEN TAB 325 MG TAB PO PRN (12:02)
[2024-01-12] MEDS ORDERED: MELATONIN 3 MG TABLET PO PRN (12:06)
[2024-01-12] MEDS ORDERED: ONDANSETRON 4 MG/2 ML VIAL IVP PRN (12:06)
[2024-01-12] MEDS ORDERED: PNEUMONIA PROTOCOL UTILIZED 1 EACH MISC PO PRN (12:06)
[2024-01-12] MEDS ORDERED: diphenhydrAMINE 25 MG CAP PO PRN (12:35)
[2024-01-12] MEDS ORDERED: LOPERAMIDE 2 MG CAP PO PRN (12:35)
[2024-01-12] MEDS ORDERED: HYOSCYAMINE SULFATE 0.125 MG TAB PO PRN (12:35)
[2024-01-12] MEDS ORDERED: traZODone HCL 50 MG TAB PO PRN (12:35)
[2024-01-12] MEDS ORDERED: cloNIDine HCL 0.1 MG TAB PO PRN (12:35)
--- NOTE | 2024-01-12 12:57 | P.HPIM ---
History of Present Illness H&P Date: 01/12/24 Chief Complaint: Shortness of breath * 48-year-old gentleman with past medical history of hypertension, ADHD, anxiety, history of alcohol use, chronic tobacco use presents to the emergency department with difficulty in breathing. Patient was recently discharged 3 weeks ago after patient was admitted for acute pancreatitis alcohol related * Patient presents from [place] where he is residing for history of alcohol opiate use.. Patient said he was having difficulty in breathing. Patient was noted to be desaturating and was placed on 2 L oxygen with SpO2 around 90%. Patient denies associated fever, chest pain does complain of paroxysm of cough. Patient does complain of sinus congestion and upper respiratory symptoms going on for last 72 hours. * Workup in ER included hematology which showed WBC 11.3 hemoglobin 12.5 platelet count of 234, INR of 0.9 like serum chemistry sodium 136 potassium 4.2 carbon dioxide 25 BUN 11 creatinine 0.72, lactate of 0.7 total protein of 6.2 * Patient tested positive for influenza A, negative for influenza B RSV and COVID * While in ER patient was given breathing treatments, IV Solu-Medrol and started on Tamiflu * Patient to be admitted to medical floor with consultation from pulmonary medicine as well REVIEW OF SYSTEMS: Cough, shortness of breath, congestion CONSTITUTIONAL: No fever, no malaise, no fatigue. HEENT: No recent visual problems or hearing problems. Denied any sore throat. CARDIOVASCULAR: No chest pain, orthopnea, PND, no palpitations, no syncope. PULMONARY: Cough, shortness of breath, congestion GASTROINTESTINAL: No diarrhea, no nausea, no vomiting, no abdominal pain. NEUROLOGICAL: No headaches, no weakness, no numbness. HEMATOLOGICAL: Denies any bleeding or petechiae. GENITOURINARY: Denies any burning micturition, frequency, or urgency. MUSCULOSKELETAL/RHEUMATOLOGICAL: Denies any joint pain, swelling, or any muscle pain. ENDOCRINE: Denies any polyuria or polydipsia. PHYSICAL EXAMINATION: GENERAL: The patient is alert and oriented x3, ill appearance nasal cannula in place HEENT: Pupils are round and equally reacting to light. EOMI. CARDIOVASCULAR: S1 and S2 present. No murmurs, rubs, or gallops. PULMONARY: Chest is clear to auscultation, no wheezing or crackles. ABDOMEN: Soft, nontender, nondistended, normoactive bowel sounds. No palpable organomegaly. MUSCULOSKELETAL: No joint swelling or deformity. EXTREMITIES: No cyanosis, clubbing, or pedal edema. NEUROLOGICAL: Gross neurological examination did not reveal any focal deficits. SKIN: No rashes. Assessment and plan * Acute hypoxemic respiratory failure * Influenza A viral pneumonia * Hypertension * History of alcohol use * Chronic tobacco use * In regards to acute hypoxemic respiratory failure likely secondary to in fluenza A, continue Tamiflu, continue IV Solu-Medrol breathing treatments * In regards to hypertension continue patient on amlodipine, patient is on clonidine as needed for withdrawal, continue Cozaar * Regards to history of alcohol use patient is coming from [place] he was recently admitted 3 weeks ago and monitored for alcohol withdrawal * Regards to tobacco use will order nicotine patch * Status is full code Past Medical History Past Medical History: Hypertension Additional Past Medical History / Comment(s): TIA 10 years ago, History of Any Multi-Drug Resistant Organisms: None Reported Past Surgical History: Hernia Repair Additional Past Surgical History / Comment(s): diffuse cysts Past Anesthesia/Blood Transfusion Reactions: No Reported Reaction Past Psychological History: ADD/ADHD, Anxiety Smoking Status: Current every day smoker Past Alcohol Use History: Daily Past Drug Use History: Opiates Medications and Allergies Home Medications Medication Instructions Recorded Confirmed Type Atorvastatin Calcium 20 mg PO HS 12/16/23 01/12/24 History Losartan [Cozaar] 50 mg PO DAILY 12/16/23 01/12/24 History Omeprazole [PriLOSEC] 20 mg PO DAILY 12/16/23 01/12/24 History Oxybutynin ER [Ditropan XL] 15 mg PO DAILY 12/16/23 01/12/24 History amLODIPine [Norvasc] 2.5 mg PO DAILY 12/16/23 01/12/24 History DULoxetine HCL [Cymbalta] 20 mg PO DAILY 30 Days #30 cap 12/22/23 01/12/24 Rx Acetaminophen Tab [Tylenol] 650 mg PO Q4H PRN 01/12/24 01/12/24 History Albuterol Inhaler [Ventolin Hfa 1 - 2 puff INHALATION Q6HR PRN #2 01/12/24 Rx Inhaler] each Calcium, Magnesium, Zinc, With 1 tab PO TID PRN 01/12/24 01/12/24 History Vitamin D3 Chlorpheniramine Maleate 4 mg PO Q4H PRN 01/12/24 01/12/24 History [Chlor-Trimeton] Hyoscyamine Sulfate [Levsin] 0.125 mg PO QID PRN 01/12/24 01/12/24 History Ibuprofen [Motrin Ib] 600 mg PO Q6H PRN 01/12/24 01/12/24 History Loperamide HCl [Imodium A-D] 4 mg PO QID PRN MDD 16 mg 01/12/24 01/12/24 History Magnesium Hydroxide [Milk of 2,400 mg PO BID PRN 01/12/24 01/12/24 History Magnesia] Melatonin 10 mg PO HS 01/12/24 01/12/24 History Multivitamins, Thera [Multivitamin 1 tab PO DAILY 01/12/24 01/12/24 History (formulary)] Mylanta Regular Strength 30 ml PO Q4H PRN 01/12/24 01/12/24 History Oseltamivir [Tamiflu] 75 mg PO Q12HR #10 cap 01/12/24 Rx Thiamine [Vitamin B-1] 100 mg PO DAILY 01/12/24 01/12/24 History cloNIDine HCL [Catapres] 0.1 - 0.3 mg PO Q4H PRN 01/12/24 01/12/24 History guaiFENesin [guaiFENesin Oral 200 mg PO Q4H PRN 01/12/24 01/12/24 History Solution] ondansetron HCL [Zofran] 8 mg PO Q6H PRN 01/12/24 01/12/24 History predniSONE [Deltasone] 40 mg PO DAILY #8 tab 01/12/24 Rx traZODone HCL [Desyrel] 50 - 150 mg PO HS PRN 01/12/24 01/12/24 History Allergies Allergy/AdvReac Type Severity Reaction Status Date / Time No Known Allergies Allergy Verified 01/12/24 09:59 Physical Exam Vitals: Vital Signs Temp Pulse Resp BP Pulse Ox 01/12/24 11:46 88 01/12/24 11:28 86 01/12/24 11:23 92 L 01/12/24 11:17 91 18 101/64 88 L 01/12/24 10:00 88 18 103/66 93 L 01/12/24 09:03 96 01/12/24 08:55 94 01/12/24 08:50 18 01/12/24 08:45 96 01/12/24 08:43 98.9 F 99 20 109/68 83 L Intake and Output 01/11/24 01/12/24 01/12/24 22:59 06:59 14:59 Other: Weight 104.326 kg Results CBC & Chem 7: 01/12/24 08:53 01/12/24 08:53 Labs: Abnormal Lab Results - Last 24 Hours (Table) 01/12/24 01/12/24 01/12/24 Range/Units 08:53 08:53 09:56 RBC 3.96 L (4.30-5.90) m/uL Hgb 12.5 L (13.0-17.5) gm/dL Hct 37.9 L (39.0-53.0) % Neutrophils # 7.9 H (1.3-7.7) k/uL Lymphocytes # 0.6 L (1.0-4.8) k/uL Sodium 136 L (137-145) mmol/L Glucose 111 H (74-99) mg/dL Calcium 8.2 L (8.4-10.2) mg/dL Total Protein 6.2 L (6.3-8.2) g/dL Influenza Type A (PCR) Detected A (Not Detectd) Assessment and Plan Time with Patient: Greater than 30
[2024-01-12] MEDS: LOSARTAN 50 MG TAB PO SCH (13:28)
[2024-01-12] MEDS: PANTOPRAZOLE 40 MG TABLET PO SCH (13:29)
[2024-01-12] MEDS: OXYBUTYNIN 15 MG TAB.ER.24 PO SCH (13:29)
[2024-01-12] MEDS: methylPREDNISolone SOD SUCCI 125 MG/2 ML VIAL IV SCH (13:29)
[2024-01-12] MEDS: NICOTINE 21MG/24HR PATCH TRANSDERM STA (13:29)
[2024-01-12] MEDS: amLODIPine 2.5 MG TAB PO SCH (13:29)
[2024-01-12] MEDS: THIAMINE 100 MG TAB PO SCH (13:29)
[2024-01-12] MEDS: guaiFENesin 600 MG TABLET.ER PO SCH (13:29)
[2024-01-12] MEDS: SODIUM CHLORIDE 0.9% 1,000 ML IV SCH (13:44)
--- NOTE | 2024-01-12 15:52 | P.CNPUL ---
History of Present Illness Consult date: 01/12/24 Requesting physician: Maciej Menendez Reason for consult: dyspnea, cough Chief complaint: Cough, congestion, shortness of breath History of present illness: This is a pleasant 48-year-old male patient with a history of chronic and ongoing tobacco dependence, ADHD, anxiety, hypertension, alcoholism with alcoholic pancreatitis, opioid addiction who has been residing in [facility]. He was recently here for pancreatitis. He presented back today with increasing shortness of breath cough congestion headache and fever. He was found to have influenza A. Chest x-ray revealed some possible early pneumonia in the right lung. Denies any abdominal pain or nausea vomiting currently. White count 9.3. Hemoglobin 12.5. Platelets 234. D-dimer 0.40. INR 0.9. Sodium 136. Potassium 4.2. Bicarb 25. BUN 11. Creatinine 0.72. Seen today in consultation in the emergency department. Currently sitting up on the stretcher. Awake and alert in no acute distress. He states he has been sick for 2 to 3 days now. He is maintaining O2 saturations in the 90s on 2 L/min per nasal cannula. Currently afebrile. Hemodynamically stable Review of Systems REVIEW OF SYSTEMS: CONSTITUTIONAL: Denies any recent significant weight loss or weight gain. EYES: Denies change in vision. EARS, NOSE, MOUTH, THROAT: Positive for headaches, denies sore throat. CARDIOVASCULAR: Denies chest pain, palpitations or syncopal episodes. RESPIRATORY: Positive for shortness of breath, cough, congestion no hemoptysis. GASTROINTESTINAL: Denies change in appetite, denies abdominal pain GENITOURINARY: Denies hematuria, denies infections. MUSKULOSKELETAL: Denies pain, denies swelling. INTEGUMENTARY: Denies rash, denies eczema. NEUROLOGICAL: Denies recent memory loss, no recent seizure activity. PSYCHIATRIC: Denies anxiety, denies depression. HEMATOLOGIC/LYMPHATIC: Denies anemia, denies enlarged lymph nodes. Past Medical History Past Medical History: Hypertension Additional Past Medical History / Comment(s): TIA 10 years ago, History of Any Multi-Drug Resistant Organisms: None Reported Past Surgical History: Hernia Repair Additional Past Surgical History / Comment(s): diffuse cysts Past Anesthesia/Blood Transfusion Reactions: No Reported Reaction Past Psychological History: ADD/ADHD, Anxiety Smoking Status: Current every day smoker Past Alcohol Use History: Daily Past Drug Use History: Opiates Medications and Allergies Home Medications Medication Instructions Recorded Confirmed Type Atorvastatin Calcium 20 mg PO HS 12/16/23 01/12/24 History Losartan [Cozaar] 50 mg PO DAILY 12/16/23 01/12/24 History Omeprazole [PriLOSEC] 20 mg PO DAILY 12/16/23 01/12/24 History Oxybutynin ER [Ditropan XL] 15 mg PO DAILY 12/16/23 01/12/24 History amLODIPine [Norvasc] 2.5 mg PO DAILY 12/16/23 01/12/24 History DULoxetine HCL [Cymbalta] 20 mg PO DAILY 30 Days #30 cap 12/22/23 01/12/24 Rx Acetaminophen Tab [Tylenol] 650 mg PO Q4H PRN 01/12/24 01/12/24 History Albuterol Inhaler [Ventolin Hfa 1 - 2 puff INHALATION Q6HR PRN #2 01/12/24 Rx Inhaler] each Calcium, Magnesium, Zinc, With 1 tab PO TID PRN 01/12/24 01/12/24 History Vitamin D3 Chlorpheniramine Maleate 4 mg PO Q4H PRN 01/12/24 01/12/24 History [Chlor-Trimeton] Hyoscyamine Sulfate [Levsin] 0.125 mg PO QID PRN 01/12/24 01/12/24 History Ibuprofen [Motrin Ib] 600 mg PO Q6H PRN 01/12/24 01/12/24 History Loperamide HCl [Imodium A-D] 4 mg PO QID PRN MDD 16 mg 01/12/24 01/12/24 History Magnesium Hydroxide [Milk of 2,400 mg PO BID PRN 01/12/24 01/12/24 History Magnesia] Melatonin 10 mg PO HS 01/12/24 01/12/24 History Multivitamins, Thera [Multivitamin 1 tab PO DAILY 01/12/24 01/12/24 History (formulary)] Mylanta Regular Strength 30 ml PO Q4H PRN 01/12/24 01/12/24 History Oseltamivir [Tamiflu] 75 mg PO Q12HR #10 cap 01/12/24 Rx Thiamine [Vitamin B-1] 100 mg PO DAILY 01/12/24 01/12/24 History cloNIDine HCL [Catapres] 0.1 - 0.3 mg PO Q4H PRN 01/12/24 01/12/24 History guaiFENesin [guaiFENesin Oral 200 mg PO Q4H PRN 01/12/24 01/12/24 History Solution] ondansetron HCL [Zofran] 8 mg PO Q6H PRN 01/12/24 01/12/24 History predniSONE [Deltasone] 40 mg PO DAILY #8 tab 01/12/24 Rx traZODone HCL [Desyrel] 50 - 150 mg PO HS PRN 01/12/24 01/12/24 History Allergies Allergy/AdvReac Type Severity Reaction Status Date / Time No Known Allergies Allergy Verified 01/12/24 09:59 Physical Exam Vitals: Vital Signs Temp Pulse Resp BP Pulse Ox 01/12/24 15:19 93 16 104/63 93 L 01/12/24 11:46 88 01/12/24 11:28 86 01/12/24 11:23 92 L 01/12/24 11:17 91 18 101/64 88 L 01/12/24 10:00 88 18 103/66 93 L 01/12/24 09:03 96 01/12/24 08:55 94 01/12/24 08:50 18 01/12/24 08:45 96 01/12/24 08:43 98.9 F 99 20 109/68 83 L Intake and Output 01/12/24 01/12/24 01/12/24 06:59 14:59 22:59 Other: Weight 104.326 kg GENERAL EXAM: Alert, pleasant 48-year-old male, on 2 L nasal cannula, comfortable in no apparent distress. HEAD: Normocephalic. EYES: Normal reaction of pupils, equal size. NOSE: Clear with pink turbinates. THROAT: No erythema or exudates. NECK: No masses, no JVD. CHEST: No chest wall deformity. LUNGS: Equal air entry with few scattered rhonchi over the right lung. CVS: S1 and S2 normal with no audible murmur, regular rhythm. ABDOMEN: No hepatosplenomegaly, normal bowel sounds, no guarding or rigidity. SPINE: No scoliosis or deformity SKIN: No rashes CENTRAL NERVOUS SYSTEM: No focal deficits, tone is normal in all 4 extremities. EXTREMITIES: There is no peripheral edema. No clubbing, no cyanosis. Peripheral pulses are intact. Results - Laboratory Findings CBC and BMP: 01/12/24 08:53 01/12/24 08:53 PT/INR, D-dimer PT 10.4 sec (10.0-12.5) 01/12/24 08:53 INR 0.9 (<1.2) 01/12/24 08:53 D-Dimer 0.40 mg/L FEU (<0.60) 01/12/24 08:53 Abnormal lab findings: Abnormal Labs 01/12/24 01/12/24 01/12/24 08:53 08:53 09:56 RBC 3.96 L Hgb 12.5 L Hct 37.9 L Neutrophils # 7.9 H Lymphocytes # 0.6 L Sodium 136 L Glucose 111 H Calcium 8.2 L Total Protein 6.2 L Influenza Type A (PCR) Detected A - Diagnostic Findings Chest x-ray: image reviewed Assessment and Plan Assessment: Acute hypoxic respiratory failure secondary to an acute hospital versus community-acquired pneumonia Acute influenza A infection Recent admission for pancreatitis History of alcoholism, residing in [facility] currently, last drink 3 weeks ago History of opioid addiction Chronic and ongoing tobacco dependence History of hypertension History of anxiety Plan: The patient was seen and evaluated Chest x-ray, labs and medications reviewed Add bronchodilators and steroids Add antibiotics in the form of Augmentin Lovenox for DVT prophylaxis Tamiflu for influenza A Titrate the FiO2 as tolerated Educated regarding smoking cessation NicoDerm patch will be offered We will continue to follow and make further recommendations based on his clinical status I have personally seen and examined the patient, performed the documentation and the assessment and plan as written. Number of minutes spent on the visit: 20.
[2024-01-12] MEDS: IPRATROPIUM-ALBUTEROL 3 ML NEB INHALATION SCH (16:10)
[2024-01-12] MEDS: AMOXIC-POT CLAV 875-125MG 1 EACH TAB PO SCH (20:32)
[2024-01-12] MEDS: OSELTAMIVIR 75 MG CAP PO SCH (20:32)
[2024-01-12] MEDS: KETOROLAC 15 MG/ML 1 ML VIAL IVP PRN (20:34)
[2024-01-12] MEDS: MELATONIN 5 MG TABLET PO SCH (20:38)
[2024-01-12] MEDS: NICOTINE 21MG/24HR PATCH TRANSDERM SCH (20:48)
[2024-01-12] MEDS: ATORVASTATIN 20 MG TAB PO SCH (20:48)
[2024-01-13 08:26] LABS: Basophils # (A) 0.01 X 10*3/uL (0.00-0.10); Basophils % (A) 0.1 %; Eosinophils # (A) 0 X 10*3/uL (0.04-0.35); Eosinophils % (A) 0 %; HCT 36.9 % (39.6-50.0); Lymphocytes # (A) 0.71 X 10*3/uL (0.90-5.00); Lymphocytes % (A) 5.4 %; MCH 30.8 pg (27.0-32.0); MCHC 32.5 g/dL (32.0-37.0); MCV 94.9 FL (80.0-97.0); Mean Platelet Volume 9.9 FL (9.5-12.2); Monocytes % (A) 3.8 %; NRBC Per 100 WBC 0 X 10*3/uL (0.00-0.01); Neutrophils # (A) 11.96 X 10*3/uL (1.80-7.70); Neutrophils % (A) 90.4 %; Platelet Count 234 X 10*3/uL (140-440); RBC 3.89 X 10*6/uL (4.40-5.60); RDW 13.3 % (11.5-14.5); WBC 13.22 X 10*3/uL (4.50-10.00)
[2024-01-13 08:50] LABS: BUN/Creat Ratio 14.62 Ratio (12.00-20.00); Blood Urea Nitrogen 11.7 mg/dL (9.0-27.0); Carbon Dioxide 24.9 mmol/L (21.6-31.8); Chloride 104 mmol/L (96-109); Glucose 135 mg/dL (70-110); Potassium 4.2 mmol/L (3.5-5.5); Sodium 140 mmol/L (135-145)
[2024-01-13 08:51] LABS: Calcium 8.5 mg/dL (8.7-10.3)
[2024-01-13] MEDS: ENOXAPARIN 40 MG/0.4 ML SYRINGE SQ SCH (09:19)
[2024-01-13] MEDS: DULoxetine HCL 20 MG CAPSULE.DR PO SCH (09:20)
--- NOTE | 2024-01-13 12:21 | P.PN ---
Subjective Progress Note Date: 01/13/24 * 48-year-old gentleman with past medical history of hypertension, ADHD, anxiety, history of alcohol use, chronic tobacco use presents to the emergency department with difficulty in breathing. Patient was recently discharged 3 weeks ago after patient was admitted for acute pancreatitis alcohol related * Patient presents from [place] where he is residing for history of alcohol opiate use.. Patient said he was having difficulty in breathing. Patient was noted to be desaturating and was placed on 2 L oxygen with SpO2 around 90%. Patient denies associated fever, chest pain does complain of paroxysm of cough. Patient does complain of sinus congestion and upper respiratory symptoms going on for last 72 hours. * Workup in ER included hematology which showed WBC 11.3 hemoglobin 12.5 platelet count of 234, INR of 0.9 like serum chemistry sodium 136 potassium 4.2 carbon dioxide 25 BUN 11 creatinine 0.72, lactate of 0.7 total protein of 6.2 * Patient tested positive for influenza A, negative for influenza B RSV and COVID * While in ER patient was given breathing treatments, IV Solu-Medrol and started on Tamiflu * Patient to be admitted to medical floor with consultation from pulmonary medicine as well * 01/13/2024: Patient seen and evaluated bedside, patient states shortness of breath has improved, patient does complain of cough, patient states he might not be ready by tomorrow patient reassured if breathing not better he would not be discharged home. Continue to remain on oxygen REVIEW OF SYSTEMS: Cough, shortness of breath, congestion CONSTITUTIONAL: No fever, no malaise, no fatigue. HEENT: No recent visual problems or hearing problems. Denied any sore throat. CARDIOVASCULAR: No chest pain, orthopnea, PND, no palpitations, no syncope. PULMONARY: Cough, shortness of breath, congestion GASTROINTESTINAL: No diarrhea, no nausea, no vomiting, no abdominal pain. NEUROLOGICAL: No headaches, no weakness, no numbness. HEMATOLOGICAL: Denies any bleeding or petechiae. GENITOURINARY: Denies any burning micturition, frequency, or urgency. MUSCULOSKELETAL/RHEUMATOLOGICAL: Denies any joint pain, swelling, or any muscle pain. ENDOCRINE: Denies any polyuria or polydipsia. PHYSICAL EXAMINATION: GENERAL: The patient is alert and oriented x3, ill appearance nasal cannula in place HEENT: Pupils are round and equally reacting to light. EOMI. CARDIOVASCULAR: S1 and S2 present. No murmurs, rubs, or gallops. PULMONARY: Chest is clear to auscultation, no wheezing or crackles. ABDOMEN: Soft, nontender, nondistended, normoactive bowel sounds. No palpable organomegaly. MUSCULOSKELETAL: No joint swelling or deformity. EXTREMITIES: No cyanosis, clubbing, or pedal edema. NEUROLOGICAL: Gross neurological examination did not reveal any focal deficits. SKIN: No rashes. Assessment and plan * Acute hypoxemic respiratory failure * Influenza A viral pneumonia * Right lower lobe pneumonia * Hypertension * History of alcohol use * Chronic tobacco use * In regards to acute hypoxemic respiratory failure likely secondary to influenza A, continue Tamiflu day 2 , continue IV Solu-Medrol breathing treatments, appreciate input from pulmonary medicine * Regards to right lower lobe pneumonia continue patient on Augmentin to complete 5-day course day 2 * In regards to hypertension continue patient on amlodipine, patient is on clonidine as needed for withdrawal, continue Cozaar * Regards to history of alcohol use patient is coming from [place] he was recently admitted 3 weeks ago and monitored for alcohol withdrawal * Regards to tobacco use will order nicotine patch * Status is full code Objective - Vital Signs Vital signs: Vital Signs Temp 98.2 F 01/13/24 07:05 Pulse 72 01/13/24 09:05 Resp 18 01/13/24 07:05 BP 130/81 01/13/24 07:05 Pulse Ox 99 01/13/24 08:52 FiO2 Intake & Output 01/12/24 01/13/24 01/13/24 18:59 06:59 18:59 Weight 104.326 kg 104.326 kg Other: Voiding Method Toilet Toilet # Voids 1 - Labs CBC & Chem 7: 01/13/24 05:17 01/13/24 05:17 Labs: Abnormal Lab Results - Last 24 Hours (Table) 01/12/24 01/13/24 01/13/24 Range/Units 09:56 05:17 05:17 WBC 13.22 H (4.50-10.00) X 10*3/uL RBC 3.89 L (4.40-5.60) X 10*6/uL Hgb 12.0 L (13.0-17.0) g/dL Hct 36.9 L (39.6-50.0) % Neutrophils # 11.96 H (1.80-7.70) X 10*3/uL Lymphocytes # 0.71 L (0.90-5.00) X 10*3/uL Eosinophils # 0 L (0.04-0.35) X 10*3/uL Glucose 135 H (70-110) mg/dL Calcium 8.5 L (8.7-10.3) mg/dL Influenza Type A (PCR) Detected A (Not Detectd)
--- NOTE | 2024-01-13 14:27 | P.PN ---
Subjective Progress Note Date: 01/13/24 This is a pleasant 48-year-old male patient with a history of chronic and ongoing tobacco dependence, ADHD, anxiety, hypertension, alcoholism with alcoholic pancreatitis, opioid addiction who has been residing in [facility]. He was recently here for pancreatitis. He presented [facility] today with increasing shortness of breath cough congestion headache and fever. He was found to have influenza A. Chest x-ray revealed some possible early pneumonia in the right lung. Denies any abdominal pain or nausea vomiting currently. White count 9.3. Hemoglobin 12.5. Platelets 234. D-dimer 0.40. INR 0.9. Sodium 136. Potassium 4.2. Bicarb 25. BUN 11. Creatinine 0.72. Seen today in consultation in the emergency department. Currently sitting up on the stretcher. Awake and alert in no acute distress. He states he has been sick for 2 to 3 days now. He is maintaining O2 saturations in the 90s on 2 L/min per nasal cannula. Currently afebrile. Hemodynamically stable The patient is seen today January 13, 2024 in follow-up on the regular medical floor. He is currently resting comfortably in bed. Awake and alert in no acute distress. Feeling a bit better today compared to yesterday. He has developed a little bit of anxiety and tremors though the patient states it has been nearly 3 weeks since his last drink. White count 13.2. Hemoglobin 12.0. Platelets 234. Sodium 140. Potassium 4.2. Bicarb 25. BUN 12. Creatinine 0.8. Glucose 135. He remains on Tamiflu. Continued on bronchodilators and steroids. Antibiotics in the form of Augmentin. Lovenox for DVT prophylaxis. NicoDerm patch in place. Objective - Vital Signs Vital signs: Vital Signs Temp 98.2 F 01/13/24 07:05 Pulse 86 01/13/24 12:17 Resp 18 01/13/24 07:05 BP 130/81 01/13/24 07:05 Pulse Ox 99 01/13/24 08:52 FiO2 Intake & Output 01/12/24 01/13/24 01/13/24 18:59 06:59 18:59 Output Total 400 Balance -400 Weight 104.326 kg 104.326 kg Output: Urine 400 Other: Voiding Method Toilet Toilet # Voids 1 - Exam GENERAL EXAM: Alert, slightly anxious, tremorous 48-year-old male, on 2 L nasal cannula, in no apparent distress. HEAD: Normocephalic. EYES: Normal reaction of pupils, equal size. NOSE: Clear with pink turbinates. THROAT: No erythema or exudates. NECK: No masses, no JVD. CHEST: No chest wall deformity. LUNGS: Equal air entry with few scattered rhonchi over the right lung. CVS: S1 and S2 normal with no audible murmur, regular rhythm. ABDOMEN: No hepatosplenomegaly, normal bowel sounds, no guarding or rigidity. SPINE: No scoliosis or deformity SKIN: No rashes CENTRAL NERVOUS SYSTEM: No focal deficits, tone is normal in all 4 extremities. EXTREMITIES: There is no peripheral edema. No clubbing, no cyanosis. Peripheral pulses are intact. - Labs CBC & Chem 7: 01/13/24 05:17 01/13/24 05:17 Labs: Abnormal Lab Results - Last 24 Hours (Table) 01/13/24 01/13/24 Range/Units 05:17 05:17 WBC 13.22 H (4.50-10.00) X 10*3/uL RBC 3.89 L (4.40-5.60) X 10*6/uL Hgb 12.0 L (13.0-17.0) g/dL Hct 36.9 L (39.6-50.0) % Neutrophils # 11.96 H (1.80-7.70) X 10*3/uL Lymphocytes # 0.71 L (0.90-5.00) X 10*3/uL Eosinophils # 0 L (0.04-0.35) X 10*3/uL Glucose 135 H (70-110) mg/dL Calcium 8.5 L (8.7-10.3) mg/dL Assessment and Plan Assessment: Acute hypoxic respiratory failure secondary to an acute hospital versus community-acquired pneumonia Acute influenza A infection Recent admission for pancreatitis History of alcoholism, residing in [facility] currently, last drink 3 weeks ago History of opioid addiction Chronic and ongoing tobacco dependence History of hypertension History of anxiety Plan: The patient was seen and evaluated Labs and medications reviewed He is a bit anxious and tremorous today Add Xanax 0.5 mg p.o. 3 times daily as needed Continue the current treatment plan Titrate the FiO2 as tolerated Follow-up chest x-ray in a.m. We will continue to follow I have personally seen and examined the patient, performed the documentation and the assessment and plan as written. Number of minutes spent on the visit: 10.
[2024-01-13] MEDS: polyethylene glycoL 3350 17 GM POWD.PACK PO SCH (17:54)
[2024-01-13] MEDS: NA PHOS,M-B/NA PHOS,DI-BA 133 ML ENEMA RECTAL ONE (22:01)
[2024-01-13] MEDS: ALPRAZolam 0.5 MG TAB PO PRN (22:05)
--- NOTE | 2024-01-14 08:09 | XR ---
EXAMINATION TYPE: XR chest 1V portable DATE OF EXAM: 01/14/2024 COMPARISON: 01/12/2024 HISTORY: Difficulty breathing TECHNIQUE: Single frontal view of the chest is obtained. FINDINGS: There is patchy bilateral subsegmental consolidation. Limited inspiration. There is no pne umothorax, pleural effusion, or focal pneumonia. Heart size normal and no overt failure. Osseous stru ctures demonstrate hypertrophic and degenerative changes of the spine. IMPRESSION: Patchy bilateral lower lobe atelectasis or early pneumonia is stable.
[2024-01-14 08:44] LABS: HCT 35.7 % (39.6-50.0); HGB 11.8 g/dL (13.0-17.0); MCH 30.7 pg (27.0-32.0); MCHC 33.1 g/dL (32.0-37.0); Mean Platelet Volume 9.8 FL (9.5-12.2); NRBC Per 100 WBC 0 X 10*3/uL (0.00-0.01); Platelet Count 255 X 10*3/uL (140-440); RBC 3.84 X 10*6/uL (4.40-5.60); RDW 13.3 % (11.5-14.5); WBC 15.94 X 10*3/uL (4.50-10.00)
[2024-01-14 09:59] LABS: BUN/Creat Ratio 22.33 Ratio (12.00-20.00); Blood Urea Nitrogen 13.4 mg/dL (9.0-27.0); Calcium 8.7 mg/dL (8.7-10.3); Carbon Dioxide 26.1 mmol/L (21.6-31.8); Chloride 104 mmol/L (96-109); Glucose 155 mg/dL (70-110); Potassium 4.2 mmol/L (3.5-5.5); Sodium 141 mmol/L (135-145)
--- NOTE | 2024-01-14 10:38 | CDI ---
Documentation Clarification Form Date: 01/14/2024 10:10:32 AM From: Kimberly Herring RN CCDS Phone: [phone] Admit Date: 01/12/2024 12:05:00 PM Patient Name: Srinivas Razo Visit Number: [id number] Discharge Date: ATTENTION: The Clinical Documentation Specialists (CDI) and [facility] Coding Staff appreciate your assistance in clarifying documentation. Please respond to the clarification below the line at the bottom and electronically sign. The CDI & [facility] Coding staff will review the response and follow-up if needed. Please note: Queries are made part of the Legal Health Record. If you have any questions, please contact the author of this message via ITS. Dr. Maciej Menendez Conflicting documentation has been found in the medical record. As attending physician, please provide clarification. Viral pneumonia, H&P, 01/11. Hospital acquired, Pulmonary consult 01/11. Community acquired, Pulmonary consult 01/11. History/Risk Factors: 48-year-old male presents to the ED from [place] where he is residing for history of alcohol and opiate use, with difficulty breathing. The patient was discharged three weeks ago admitted for acute pancreatitis alcohol related. Clinical Indicators: VSS, 01/11: B/P 109/68; RR 20, HR 99; Temp 98.9F Oral; SpO2 83% room air LABS: Wbc 9.3; Neutrophils 7.9 and Influenza A detected CXR, 01/11: Patchy bilateral lower lobe atelectasis or early pneumonia greater on the right. Physical exam, Pulmonary: Chest is clear to auscultation. 01/11, H&P Review of symptoms, Pulmonary: Cough, shortness of breath and congestion. Treatment: 01/11 Duoneb 3ml inhalation x 1; 01/11 Solumedrol 125mg IV x 1; 01/11 0.9NS 500cc bolus x 1; 01/11 Tamiflu 75mg po x 1; 01/11 Deuonb 6ml Inhalation x 1; 01/11 Mucinex 600mg PO Q12; Duoneb 3ml Inhalation QID SEDA; 01/11 Solumedrol 60mg IV Q6H; 01/11 Augmentin 875/125 1 po Q12H x 10 doses, 01/11 Tamiflu 75mg po Q12H SEDA. Please clarify which diagnosis is most appropriate: [ ] Viral Pneumonia [ y ] Community Acquired Pneumonia [ ] Hospital Acquired Pneumonia [ ] Other (please specify) [ ] Unable to determine (Template Last Revised: December 2020) MTDD
--- NOTE | 2024-01-14 12:11 | P.PN ---
Subjective Progress Note Date: 01/14/24 * 48-year-old gentleman with past medical history of hypertension, ADHD, anxiety, history of alcohol use, chronic tobacco use presents to the emergency department with difficulty in breathing. Patient was recently discharged 3 weeks ago after patient was admitted for acute pancreatitis alcohol related * Patient presents from [place] where he is residing for history of alcohol opiate use.. Patient said he was having difficulty in breathing. Patient was noted to be desaturating and was placed on 2 L oxygen with SpO2 around 90%. Patient denies associated fever, chest pain does complain of paroxysm of cough. Patient does complain of sinus congestion and upper respiratory symptoms going on for last 72 hours. * Workup in ER included hematology which showed WBC 11.3 hemoglobin 12.5 platelet count of 234, INR of 0.9 like serum chemistry sodium 136 potassium 4.2 carbon dioxide 25 BUN 11 creatinine 0.72, lactate of 0.7 total protein of 6.2 * Patient tested positive for influenza A, negative for influenza B RSV and COVID * While in ER patient was given breathing treatments, IV Solu-Medrol and started on Tamiflu * Patient to be admitted to medical floor with consultation from pulmonary medicine as well * 01/13/2024: Patient seen and evaluated bedside, patient states shortness of breath has improved, patient does complain of cough, patient states he might not be ready by tomorrow patient reassured if breathing not better he would not be discharged home. Continue to remain on oxygen * 01/14/2024: Patient seen and evaluated at bedside, patient weaned down to room air, WBC count 15.9, continue patient on antiviral therapy with Tamiflu. Continue IV Solu-Medrol expected discharge in the next 24 hours, does complain of cough. REVIEW OF SYSTEMS: Cough, shortness of breath, congestion improved CONSTITUTIONAL: No fever, no malaise, no fatigue. HEENT: No recent visual problems or hearing problems. Denied any sore throat. CARDIOVASCULAR: No chest pain, orthopnea, PND, no palpitations, no syncope. PULMONARY: Cough, shortness of breath, congestion improved GASTROINTESTINAL: constipation NEUROLOGICAL: No headaches, no weakness, no numbness. HEMATOLOGICAL: Denies any bleeding or petechiae. GENITOURINARY: Denies any burning micturition, frequency, or urgency. MUSCULOSKELETAL/RHEUMATOLOGICAL: Denies any joint pain, swelling, or any muscle pain. ENDOCRINE: Denies any polyuria or polydipsia. PHYSICAL EXAMINATION: GENERAL: The patient is alert and oriented x3, ill appearance nasal cannula in place HEENT: Pupils are round and equally reacting to light. EOMI. CARDIOVASCULAR: S1 and S2 present. No murmurs, rubs, or gallops. PULMONARY: Chest is clear to auscultation, no wheezing or crackles. ABDOMEN: Soft, nontender, nondistended, normoactive bowel sounds. No palpable organomegaly. MUSCULOSKELETAL: No joint swelling or deformity. EXTREMITIES: No cyanosis, clubbing, or pedal edema. NEUROLOGICAL: Gross neurological examination did not reveal any focal deficits. SKIN: No rashes. Assessment and plan * Acute hypoxemic respiratory failure * Influenza A viral pneumonia * Right lower lobe pneumonia * Hypertension * History of alcohol use * Chronic tobacco use * In regards to acute hypoxemic respiratory failure likely secondary to influenza A, continue Tamiflu day , continue IV Solu-Medrol breathing treatments, appreciate input from pulmonary medicine * Regards to right lower lobe pneumonia continue patient on Augmentin to complete 5-day course day 3 * In regards to hypertension continue patient on amlodipine, patient is on clonidine as needed for withdrawal, continue Cozaar * Regards to history of alcohol use patient is coming from [place] he was recently admitted 3 weeks ago and monitored for alcohol withdrawal * Regards to tobacco use will order nicotine patch * Status is full code Objective - Vital Signs Vital signs: Vital Signs Temp 97.6 F 01/14/24 06:45 Pulse 70 01/14/24 08:47 Resp 16 01/14/24 06:45 BP 127/75 01/14/24 06:45 Pulse Ox 98 01/14/24 08:32 FiO2 Intake & Output 01/13/24 01/14/24 01/14/24 18:59 06:59 18:59 Intake Total 640 Output Total 800 Balance -160 Intake: Intake, IV Titration 0 Amount Sodium Chloride 0.9% 1, 0 000 ml @ 100 mls/hr IV . Q10H SEDA Rx#:[id number] Oral 640 Output: Urine 800 Other: Voiding Method Toilet Toilet # Voids 3 4 - Labs CBC & Chem 7: 01/14/24 05:36 01/14/24 05:36 Labs: Abnormal Lab Results - Last 24 Hours (Table) 01/14/24 Range/Units 05:36 WBC 15.94 H (4.50-10.00) X 10*3/uL RBC 3.84 L (4.40-5.60) X 10*6/uL Hgb 11.8 L (13.0-17.0) g/dL Hct 35.7 L (39.6-50.0) %
--- NOTE | 2024-01-14 15:34 | P.PN ---
Subjective Progress Note Date: 01/14/24 This is a pleasant 48-year-old male patient with a history of chronic and ongoing tobacco dependence, ADHD, anxiety, hypertension, alcoholism with alcoholic pancreatitis, opioid addiction who has been residing in [facility]. He was recently here for pancreatitis. He presented [facility] today with increasing shortness of breath cough congestion headache and fever. He was found to have influenza A. Chest x-ray revealed some possible early pneumonia in the right lung. Denies any abdominal pain or nausea vomiting currently. White count 9.3. Hemoglobin 12.5. Platelets 234. D-dimer 0.40. INR 0.9. Sodium 136. Potassium 4.2. Bicarb 25. BUN 11. Creatinine 0.72. Seen today in consultation in the emergency department. Currently sitting up on the stretcher. Awake and alert in no acute distress. He states he has been sick for 2 to 3 days now. He is maintaining O2 saturations in the 90s on 2 L/min per nasal cannula. Currently afebrile. Hemodynamically stable The patient is seen today January 13, 2024 in follow-up on the regular medical floor. He is currently resting comfortably in bed. Awake and alert in no acute distress. Feeling a bit better today compared to yesterday. He has developed a little bit of anxiety and tremors though the patient states it has been nearly 3 weeks since his last drink. White count 13.2. Hemoglobin 12.0. Platelets 234. Sodium 140. Potassium 4.2. Bicarb 25. BUN 12. Creatinine 0.8. Glucose 135. He remains on Tamiflu. Continued on bronchodilators and steroids. Antibiotics in the form of Augmentin. Lovenox for DVT prophylaxis. NicoDerm patch in place. The patient is seen today January 14, 2024 in follow-up on the regular medical floor. He is currently sitting up in bed. Awake and alert in no acute distress. He is maintaining O2 saturations in the 90s on room air. He is more relaxed today. Receiving Xanax as needed. Continued on antibiotics in the form of Augmentin. Continued on bronchodilators and steroids. Continued on Tamiflu. NicoDerm patch in place. White count 15.9. Hemoglobin 11.8. Platelets 255. Sodium 141. Potassium 4.2. Bicarb 26. BUN 13. Creatinine 0.6. Glucose 155. Follow-up chest x-ray reveals patchy bilateral lower lobe atelectasis. Objective - Vital Signs Vital signs: Vital Signs Temp 97.6 F 01/14/24 14:00 Pulse 85 01/14/24 14:00 Resp 16 01/14/24 14:00 BP 117/62 01/14/24 14:00 Pulse Ox 94 L 01/14/24 14:00 FiO2 Intake & Output 01/13/24 01/14/24 01/14/24 18:59 06:59 18:59 Intake Total 640 Output Total 800 Balance -160 Intake: Intake, IV Titration 0 Amount Sodium Chloride 0.9% 1, 0 000 ml @ 100 mls/hr IV . Q10H [facility]A Rx#:[id number] Oral 640 Output: Urine 800 Other: Voiding Method Toilet Toilet # Voids 3 4 - Exam GENERAL EXAM: Alert, relaxed 48-year-old male, on room air, in no apparent distress. HEAD: Normocephalic. EYES: Normal reaction of pupils, equal size. NOSE: Clear with pink turbinates. THROAT: No erythema or exudates. NECK: No masses, no JVD. CHEST: No chest wall deformity. LUNGS: Equal air entry with few scattered rhonchi over the right lung. CVS: S1 and S2 normal with no audible murmur, regular rhythm. ABDOMEN: No hepatosplenomegaly, normal bowel sounds, no guarding or rigidity. SPINE: No scoliosis or deformity SKIN: No rashes CENTRAL NERVOUS SYSTEM: No focal deficits, tone is normal in all 4 extremities. EXTREMITIES: There is no peripheral edema. No clubbing, no cyanosis. Peripheral pulses are intact. - Labs CBC & Chem 7: 01/14/24 05:36 01/14/24 05:36 Labs: Abnormal Lab Results - Last 24 Hours (Table) 01/14/24 01/14/24 Range/Units 05:36 05:36 WBC 15.94 H (4.50-10.00) X 10*3/uL RBC 3.84 L (4.40-5.60) X 10*6/uL Hgb 11.8 L (13.0-17.0) g/dL Hct 35.7 L (39.6-50.0) % BUN/Creatinine Ratio 22.33 H (12.00-20.00) Ratio Glucose 155 H (70-110) mg/dL Assessment and Plan Assessment: Acute hypoxic respiratory failure secondary to an acute hospital versus comm unity-acquired pneumonia. Follow-up chest x-ray reveals stable patchy bilateral lower lobe atelectasis. Recovered and on room air Acute influenza A infection treated with Tamiflu Recent admission for pancreatitis History of alcoholism, residing in [facility] currently, last drink 3 weeks ago History of opioid addiction Chronic and ongoing tobacco dependence History of hypertension History of anxiety Plan: The patient was seen and evaluated Chest x-ray, labs and medications reviewed Currently stable and on room air Continue the current treatment plan Probable discharge in the a.m. We will continue to follow I have personally seen and examined the patient, performed the documentation and the assessment and plan as written. Number of minutes spent on the visit: 10.
[2024-01-15] MEDS: predniSONE 20 MG TAB PO SCH (07:38)
[2024-01-15 07:50] VITALS: TEMP 97.8
[2024-01-15 11:08] LABS: HCT 37.8 % (39.6-50.0); HGB 12.2 g/dL (13.0-17.0); MCH 30.2 pg (27.0-32.0); MCHC 32.3 g/dL (32.0-37.0); MCV 93.6 FL (80.0-97.0); Mean Platelet Volume 9.4 FL (9.5-12.2); NRBC Per 100 WBC 0 X 10*3/uL (0.00-0.01); Platelet Count 254 X 10*3/uL (140-440); RBC 4.04 X 10*6/uL (4.40-5.60); RDW 13.3 % (11.5-14.5); WBC 13.38 X 10*3/uL (4.50-10.00)
[2024-01-15 11:26] LABS: Blood Urea Nitrogen 13.6 mg/dL (9.0-27.0); Calcium 8.9 mg/dL (8.7-10.3); Carbon Dioxide 31.7 mmol/L (21.6-31.8); Chloride 101 mmol/L (96-109); Glucose 74 mg/dL (70-110); Sodium 142 mmol/L (135-145)
--- NOTE | 2024-01-15 13:25 | P.PN ---
Subjective Progress Note Date: 01/15/24 This is a pleasant 48-year-old male patient with a history of chronic and ongoing tobacco dependence, ADHD, anxiety, hypertension, alcoholism with alcoholic pancreatitis, opioid addiction who has been residing in [facility]. He was recently here for pancreatitis. He presented [facility] today with increasing shortness of breath cough congestion headache and fever. He was found to have influenza A. Chest x-ray revealed some possible early pneumonia in the right lung. Denies any abdominal pain or nausea vomiting currently. White count 9.3. Hemoglobin 12.5. Platelets 234. D-dimer 0.40. INR 0.9. Sodium 136. Potassium 4.2. Bicarb 25. BUN 11. Creatinine 0.72. Seen today in consultation in the emergency department. Currently sitting up on the stretcher. Awake and alert in no acute distress. He states he has been sick for 2 to 3 days now. He is maintaining O2 saturations in the 90s on 2 L/min per nasal cannula. Currently afebrile. Hemodynamically stable The patient is seen today January 13, 2024 in follow-up on the regular medical floor. He is currently resting comfortably in bed. Awake and alert in no acute distress. Feeling a bit better today compared to yesterday. He has developed a little bit of anxiety and tremors though the patient states it has been nearly 3 weeks since his last drink. White count 13.2. Hemoglobin 12.0. Platelets 234. Sodium 140. Potassium 4.2. Bicarb 25. BUN 12. Creatinine 0.8. Glucose 135. He remains on Tamiflu. Continued on bronchodilators and steroids. Antibiotics in the form of Augmentin. Lovenox for DVT prophylaxis. NicoDerm patch in place. The patient is seen today January 14, 2024 in follow-up on the regular medical floor. He is currently sitting up in bed. Awake and alert in no acute distress. He is maintaining O2 saturations in the 90s on room air. He is more relaxed today. Receiving Xanax as needed. Continued on antibiotics in the form of Augmentin. Continued on bronchodilators and steroids. Continued on Tamiflu. NicoDerm patch in place. White count 15.9. Hemoglobin 11.8. Platelets 255. Sodium 141. Potassium 4.2. Bicarb 26. BUN 13. Creatinine 0.6. Glucose 155. Follow-up chest x-ray reveals patchy bilateral lower lobe atelectasis. The patient is seen today January 15, 2024 in follow-up on the regular medical floor. He is currently resting comfortably in bed. Awake and alert in no acute distress. He is maintaining good O2 saturations 90s on room air. He has been afebrile. Hemodynamically stable. White count 13.3. Hemoglobin 12.2. Sodium 142. Potassium 5.0. Bicarb 32. BUN 14. Creatinine 0.8. Glucose 74. He is continued on bronchodilators, Sinex, Augmentin, Tamiflu. NicoDerm patch in place. On a prednisone taper. Lovenox for DVT prophylaxis. Objective - Vital Signs Vital signs: Vital Signs Temp 97.8 F 01/15/24 06:52 Pulse 70 01/15/24 12:42 Resp 17 01/15/24 06:52 BP 135/79 01/15/24 06:52 Pulse Ox 96 01/15/24 06:52 FiO2 Intake & Output 01/14/24 01/15/24 01/15/24 18:59 06:59 18:59 Other: # Voids 4 3 - Exam GENERAL EXAM: Alert, pleasant 48-year-old male, resting in bed, on room air, in no apparent distress. HEAD: Normocephalic. EYES: Normal reaction of pupils, equal size. NOSE: Clear with pink turbinates. THROAT: No erythema or exudates. NECK: No masses, no JVD. CHEST: No chest wall deformity. LUNGS: Equal air entry with few scattered rhonchi over the right lung. CVS: S1 and S2 normal with no audible murmur, regular rhythm. ABDOMEN: No hepatosplenomegaly, normal bowel sounds, no guarding or rigidity. SPINE: No scoliosis or deformity SKIN: No rashes CENTRAL NERVOUS SYSTEM: No focal deficits, tone is normal in all 4 extremities. EXTREMITIES: There is no peripheral edema. No clubbing, no cyanosis. Peripheral pulses are intact. - Labs CBC & Chem 7: 01/15/24 07:16 01/15/24 07:16 Labs: Abnormal Lab Results - Last 24 Hours (Table) 01/15/24 Range/Units 07:16 WBC 13.38 H (4.50-10.00) X 10*3/uL RBC 4.04 L (4.40-5.60) X 10*6/uL Hgb 12.2 L (13.0-17.0) g/dL Hct 37.8 L (39.6-50.0) % MPV 9.4 L (9.5-12.2) FL Assessment and Plan Assessment: Acute hypoxic respiratory failure secondary to an acute hospital versus community-acquired pneumonia. Follow-up chest x-ray reveals stable patchy bilateral lower lobe atelectasis. Recovered and on room air Acute influenza A infection treated with Tamiflu Recent admission for pancreatitis History of alcoholism, residing in [facility] currently, last drink 3 weeks ago History of opioid addiction Chronic and ongoing tobacco dependence History of hypertension History of anxiety Plan: The patient was seen and evaluated Labs and medications reviewed Currently stable and on room air Cleared for discharge Complete a prednisone taper Complete a course of Tamiflu Continue bronchodilators as needed This patient was seen independently by the pulmonary nurse practitioner addressing pulmonary issues I have personally seen and examined the patient, performed the documentation and the assessment and plan as written. Number of minutes spent on the visit: 23.
[2024-01-15 14:06] VITALS: BP 132/71; PULSE 87; RESP 16
== END 2024-01-15 15:13 | disposition other institution (70) | DRG 139 ==
LOC: EC 08:42 → 5NMEDONC 12:05 → 4SSUR 19:55
PROVIDERS: ADMIT Hospitalist; ATTEND Hospitalist
DX: J10.08 Influenza due to other identified influenza virus with other specified pneumonia (principal); J12.9 Viral pneumonia, unspecified; J44.0 Chronic obstructive pulmonary disease with (acute) lower respiratory infection; J96.01 Acute respiratory failure with hypoxia; J98.01 Acute bronchospasm; J98.11 Atelectasis; Z79.899 Other long term (current) drug therapy; Z86.73 Personal history of transient ischemic attack (TIA), and cerebral infarction without residual deficits; I10 Essential (primary) hypertension; F11.20 Opioid dependence, uncomplicated; F90.9 Attention-deficit hyperactivity disorder, unspecified type; F10.239 Alcohol dependence with withdrawal, unspecified; F17.200 Nicotine dependence, unspecified, uncomplicated; F41.9 Anxiety disorder, unspecified
CPT/HCPCS: 36415; 71045; 71046; 80048; 80053; 83605; 83735; 84484; 85025; 85027; 85379; 85610; 85730; 87636; 93005; 94640; 94760; 96361; 96374; 96375; 96376; 99285